=== PATIENT | female | born 1935 | race Caucasian/White ===

== ENCOUNTER 2017-02-23 12:01 | Observation (INO) | payer MEDICARE, OTHER ==
[2017-02-23] MEDS ORDERED: Aspirin 81 MG Tab.EC PO ONE (12:20)
--- NOTE | 2017-02-23 13:36 | EDM.PDOC ---
ED HPI GENERAL MEDICAL PROBLEM - General Chief Complaint: Neuro Symptoms/Deficits Stated Complaint: POSSIBLE STROKE/TIA Time Seen by Provider: 02/23/17 12:05 Source of Information: Reports: Patient History Limitations: Reports: No Limitations - History of Present Illness INITIAL COMMENTS - FREE TEXT/NARRATIVE: Patient is an 81 year old woman who was talking with her daughter on the phone one half hour before coming to the ED and her daughter noticed that she was slurring her speech as she did when she had a TIA many years ago. Her daughter called the ambulance and her brother and when they got to her home they noticed the slurred speech, a left facial and mouth droop and her right arm was weak and hard to raise throughout the whole ROM. She has no pain or other complaints but is here for further evaluation and treatment. Onset: Today Onset Date: 02/23/17 Onset Time: 11:30 Duration: Minutes: (40) Location: Reports: Face (Facial and mouth drooping.), Upper Extremity, Right ( Weakness) Quality: Reports: Other (Weakness and slurred speech like a TIA that she has had before.) Severity: Moderate Improves with: Reports: None Worsens with: Reports: None Context: Reports: Other (History of TIA's.) Associated Symptoms: Reports: No Other Symptoms - Related Data Allergies Allergy/AdvReac Type Severity Reaction Status Date / Time No Known Allergies Allergy Verified 02/23/17 12:30 Home Meds: Home Meds Candesartan [Atacand] 32 mg PO DAILY 02/23/17 [History] Hydrochlorothiazide 25 mg PO DAILY 02/23/17 [History] Metoprolol Succinate [Toprol Xl] 50 mg PO DAILY 02/23/17 [History] atorvaSTATin [Lipitor] 20 mg .ROUTE DAILY 02/23/17 [History] Past Medical History HEENT History: Reports: Cataract, Hard of Hearing Cardiovascular History: Reports: High Cholesterol, Hypertension Respiratory History: Reports: Other (See Below) Other Respiratory History: hx of lung ca, had upper lobe of right lung removed Gastrointestinal History: Reports: Cholelithiasis Musculoskeletal History: Reports: Osteoarthritis Neurological History: Reports: TIA Oncologic (Cancer) History: Reports: Lung - Past Surgical History HEENT Surgical History: Reports: Cataract Surgery Respiratory Surgical History: Reports: Lung Resection Social & Family History - Tobacco Use Smoking Status *Q: Never Smoker Second Hand Smoke Exposure: No - Caffeine Use Caffeine Use: Reports: Coffee - Alcohol Use Days Per Week of Alcohol Use: 2 Number of Drinks Per Day: 1 Total Drinks Per Week: 2 Date of Last Drink: 02/23/17 - Recreational Drug Use Recreational Drug Use: No ED ROS GENERAL - Review of Systems Review Of Systems: See Below Constitutional: Reports: Weakness, Other (Slurred speech.) HEENT: Reports: Other (Right facial and mouth droop and slurred speech.) Respiratory: Reports: No Symptoms Cardiovascular: Reports: No Symptoms Endocrine: Reports: No Symptoms GI/Abdominal: Reports: No Symptoms : Reports: No Symptoms Musculoskeletal: Reports: No Symptoms Skin: Reports: No Symptoms Neurological: Reports: Weakness (Left side of mouth and lower face. Right arm weakness.), Change in Speech, Other (CT head without contrast showed no new infarct per radiology. 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 Cannot go through full right shoulder ROM.) DTR: 2+: Bicep (R), Bicep (L), Tricep (R), Tricep (L), Patella (R), Patella (L) Extremities: Normal Inspection, Non-Tender, No Pedal Edema Psychiatric: Normal Affect, Normal Mood Skin Exam: Warm, Dry, Intact, Normal Color, No Rash Course - Vital Signs Text/Narrative:: Patient was given 162 mg of Aspirin shortly after admission and by the time all the labs and CT results were back in she was back to normal. She will be admitted to observation to watch her closely for any neurological symptoms. She will continue her home meds, HCTZ, Atorvastatin, Candesartan an Metoprolol. Dr. Conway will staff her in the AM. She is a full code. Last Recorded V/S: Last Vital Signs Temp 36.7 C 02/23/17 12:40 Pulse 64 02/23/17 12:40 Resp 16 02/23/17 12:40 BP 141/72 H 02/23/17 12:40 Pulse Ox 97 02/23/17 12:40 - Orders/Labs/Meds Orders: Active Orders 24 hr Category Date Time Status EKG Documentation Completion [RC] ASDIRECTED Care 02/23/17 12:19 Active EKG Documentation Completion [RC] ROUTINE Care 02/23/17 12:18 Active Head wo Cont [CT] Stat Exams 02/23/17 12:18 Taken Labs: Laboratory Tests 02/23/17 02/23/17 Range/Units 12:20 12:20 WBC 9.0 (4.0-11.0) K/uL RBC 3.98 (3.80-5.80) M/uL Hgb 11.7 (11.5-16.5) g/dL Hct 35.5 L (37.0-47.0) % MCV 89 (76-96) fL MCH 29.4 (27.0-32.0) pg MCHC 33.0 (31.0-35.0) g/dL RDW 13.2 (11.0-16.0) % Plt Count 224 (150-500) K/uL MPV 10.4 H (6.0-10.0) fL Neut % (Auto) 65.0 (45.0-70.0) % Lymph % (Auto) 22.3 (20.0-40.0) % Cole % (Auto) 6.4 (3.0-10.0) % Eos % (Auto) 5.7 H (1.0-5.0) % Baso % (Auto) 0.6 H (0.0-0.5) % Neut # (Auto) 5.85 (2.00-7.50) K/uL Lymph # (Auto) 2.01 (1.50-4.00) K/uL Cole # (Auto) 0.58 (0.20-0.80) K/uL Eos # (Auto) 0.51 H (0.04-0.40) K/uL Baso # (Auto) 0.05 (0.02-0.10) K/uL Sodium 137 (136-145) mmol/L Potassium 3.7 (3.5-5.1) mmol/L Chloride 101 (98-107) mmol/L Carbon Dioxide 27.5 (21.0-32.0) mmol/L Anion Gap 12.2 (5.0-15.0) mmol/L BUN 22 (8-26) mg/dL Creatinine 1.05 H (0.55-1.02) mg/dL Est Cr Clr Drug Dosing TNP Estimated GFR (MDRD) 50 L (>60) MLS/MIN BUN/Creatinine Ratio 21.0 (6-25) Glucose 142 H D (74-100) mg/dL Calcium 9.2 (8.5-10.1) mg/dL Total Bilirubin 0.6 (0.0-1.0) mg/dL AST 14 L (15-37) U/L ALT 20 (12-78) U/L Alkaline Phosphatase 108 (46-116) U/L Troponin I < 0.017 (0.000-0.060) ng/mL Total Protein 7.0 (6.4-8.2) g/dL Albumin 3.3 L (3.4-5.0) g/dL Globulin 3.7 (2.2-4.2) g/dL Albumin/Globulin Ratio 0.9 (0.8-2.0) Meds: Medications Discontinued Medications Generic Name Dose Route Start Last Admin Trade Name Freq PRN Reason Stop Dose Admin Aspirin 162 mg 02/23/17 12:20 Halfprin PO 02/23/17 12:21 ONETIME ONE Departure - Departure Time of Disposition: 13:58 Disposition: Refer to Observation Condition: Good Clinical Impression: TIA (transient ischemic attack) - Discharge Information Forms: ED Department Discharge Additional Instructions: Please use this ED note also as the admission H and P to observation admission. - My Orders Last 24 Hours: My Active Orders 02/23/17 12:18 EKG Documentation Completion [RC] ROUTINE Head wo Cont [CT] Stat 02/23/17 12:19 EKG Documentation Completion [RC] ASDIRECTED - Assessment/Plan Last 24 Hours: My Active Orders 02/23/17 12:18 EKG Documentation Completion [RC] ROUTINE Head wo Cont [CT] Stat 02/23/17 12:19 EKG Documentation Completion [RC] ASDIRECTED
--- NOTE | 2017-02-23 18:40 | CT ---
DATE OF SERVICE: 02/23/2017 CLINICAL DATA: Slurred speech, left facial droop and weakness rig. UNENHANCED BRAIN CT Multislice acquisition through the brain without IV contrast was performed. No priors. There is mild diffuse cerebral atrophy. There are periventricular lucencies bilaterally consistent with small vessel ischemic change. There is a small area of encephalomalacia in the right cerebellar hemisphere consistent with a prior infarct. No masses or mass effect. No intracranial hemorrhage. No evidence of acute or subacute infarct. There is minimal mucosal thickening in the ethmoid sinuses consistent with chronic sinusitis. IMPRESSION: No acute intracranial abnormalities. [id number] [facility]
[2017-02-23] MEDS ORDERED: Aspirin 81 MG Tab.EC ONE (19:27)
[2017-02-23] MEDS ORDERED: atorvaSTATin 20 MG Tab PO SCH (20:00)
[2017-02-24] MEDS ORDERED: Hydrochlorothiazide 25 MG Tab PO SCH ×2 (08:00→20:00)
[2017-02-24] MEDS ORDERED: Metoprolol Succinate 50 MG Tab.ER PO SCH ×2 (08:00→20:00)
--- NOTE | 2017-02-24 10:00 | PCM.DCSUM1 ---
Discharge Summary - Discharge Data Discharge Date: 02/24/17 Discharge Disposition: Home, Self-Care 01 Condition: Good - Patient Instructions Diet: Heart Healthy Diet Activity: As Tolerated Driving: Do Not Drive - Discharge Plan Home Medications: Home Meds Candesartan [Atacand] 32 mg PO DAILY 02/23/17 [History] Hydrochlorothiazide 25 mg PO DAILY 02/23/17 [History] Metoprolol Succinate [Toprol Xl] 50 mg PO DAILY 02/23/17 [History] atorvaSTATin [Lipitor] 20 mg .ROUTE DAILY 02/23/17 [History] Patient Handouts: Transient Ischemic Attack, [id number] Forms: ED Department Discharge Referrals: PCP,None [Primary Care Provider] - - Discharge Summary/Plan Comment DC Time >30 min.: Yes Discharge Summary/Plan Comment: Patient counseled on close monitoring and f/u in clinic as routine after discharge. Discussed need for further imaging eg MRA due to prior history 15 years ago of a similar TIA apparently in the same region of the brain. Patient to f/u in clinic and for MRA in AM. Patient currently asymptomatic and fully recovered. - Patient Data Vitals - Most Recent: Last Vital Signs Temp 36.8 C 02/23/17 20:00 Pulse 72 02/23/17 21:00 Resp 18 02/24/17 04:00 BP 146/78 H 02/23/17 21:00 Pulse Ox 95 02/23/17 20:00 Weight - Most Recent: 90.718 kg Med Orders - Current: Current Medications Discontinued Medications Aspirin (Halfprin) 162 mg PO ONETIME ONE Stop: 02/23/17 12:21 Last Admin: 02/23/17 19:34 Dose: Not Given Aspirin (Halfprin) Confirm Administered Dose 162 mg .ROUTE .STK-MED ONE Stop: 02/23/17 19:28 Last Admin: 02/23/17 19:32 Dose: 162 mg Atorvastatin Calcium (Lipitor) 20 mg PO BEDTIME [facility] Last Admin: 02/23/17 20:58 Dose: 20 mg Hydrochlorothiazide (Hydrochlorothiazide) 25 mg PO DAILY [facility] Last Admin: 02/23/17 20:58 Dose: 25 mg Hydrochlorothiazide (Hydrochlorothiazide) 25 mg PO BEDTIME [facility] Metoprolol Succinate (Toprol Xl) 50 mg PO DAILY [facility] Last Admin: 02/23/17 21:00 Dose: 50 mg Metoprolol Succinate (Toprol Xl) 50 mg PO BEDTIME SHARONDA *Q Meaningful Use (DIS) - VTE *Q VTE Criteria *Q: - Stroke *Q Stroke Criteria *Q: - AMI *Q AMI Criteria *Q:
[2017-02-24 10:01] VITALS: BP 155/64
== END 2017-02-24 09:53 | disposition home or self-care (01) ==
LOC: LB.ED 12:01 → LB.MS 13:00 → UNDOADMOB 13:00 → LB.MS 13:45 → LB.ED 14:46
PROVIDERS: ADMIT Family Medicine; ATTEND Family Medicine
DX: G45.9 Transient cerebral ischemic attack, unspecified (principal); I10 Essential (primary) hypertension; E78.00 Pure hypercholesterolemia, unspecified; Z79.899 Other long term (current) drug therapy; Z98.890 Other specified postprocedural states
CPT/HCPCS: 36415; 70450; 80053; 84484; 85025; 93005; 99285; A0425; A0429; G0378; 99217; 99220; A9270-GY

== ENCOUNTER 2021-05-12 07:34 | Emergency (ER) | payer MEDICARE, OTHER ==
[2021-05-12] MEDS ORDERED: Sodium Chloride 0.9% 10 ML Syringe FLUSH PRN (08:11)
--- NOTE | 2021-05-12 08:52 | EDM.PDOC ---
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 Left Lower Abdomen Pain Score (Numeric/FACES): 8 - Related Data Allergies Allergy/AdvReac Type Severity Reaction Status Date / Time No Known Allergies Allergy Verified 05/12/21 08:07 Home Meds: Home Meds Candesartan [Atacand] 32 mg PO DAILY 02/23/17 [History] Metoprolol Succinate [Toprol Xl] 50 mg PO QPM 02/23/17 [History] atorvaSTATin [Lipitor] 20 mg PO QPM 02/23/17 [History] Aspirin 81 mg PO QPM 05/12/21 [History] Levothyroxine Sodium [Synthroid] 1 tab PO QAM 05/12/21 [History] Past Medical History HEENT History: Reports: Cataract, Hard of Hearing Cardiovascular History: Reports: High Cholesterol, Hypertension Respiratory History: Reports: Other (See Below) Other Respiratory History: hx of lung ca, had upper lobe of right lung removed Gastrointestinal History: Reports: Cholelithiasis [employer]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: Musculoskeletal History: Reports: Osteoarthritis Neurological History: Reports: TIA Endocrine/Metabolic History: Reports: Hypothyroidism Oncologic (Cancer) History: Reports: Lung - Infectious Disease History Infectious Disease History: Reports: Chicken Pox, Measles, Mumps - Past Surgical History HEENT Surgical History: Reports: Cataract Surgery Respiratory Surgical History: Reports: Lung Resection Oncologic Surgical History: Reports: Lobectomy Other Oncologic Surgeries/Procedures: right upper lobe Social & Family History - Family History Family Medical History: No Pertinent Family History Neurological: Reports: CVA - Tobacco Use Tobacco Use Status *Q: Never Tobacco User - Caffeine Use Caffeine Use: Reports: None - Recreational Drug Use Recreational Drug Use: No ED ROS GENERAL - Review of Systems Review Of Systems: See Below Constitutional: Reports: Decreased Appetite. Denies: Fever HEENT: Reports: No Symptoms Respiratory: Denies: Shortness of Breath, Cough Cardiovascular: Denies: Chest Pain GI/Abdominal: Reports: Abdominal Pain, Constipation, Decreased Appetite. Denies: Diarrhea, Nausea, Vomiting Musculoskeletal: Reports: Back Pain Skin: Reports: No Symptoms Neurological: Reports: No Symptoms ED EXAM, GI/ABD - Physical Exam Exam: See Below Exam Limited By: No Limitations General Appearance: Alert, No Apparent Distress Eyes: Bilateral: Normal Appearance Ears: Normal External Exam, Hearing Grossly Normal Nose: Normal Inspection Throat/Mouth: Normal Inspection Head: Atraumatic, Normocephalic Neck: Normal Inspection, Full Range of Motion Respiratory/Chest: No Respiratory Distress, Lungs Clear, Normal Breath Sounds, No Accessory Muscle Use, Chest Non-Tender Cardiovascular: Regular Rate, Rhythm GI/Abdominal Exam: Normal Bowel Sounds, Soft, Tender Back Exam: Normal Inspection, Other (Back pain at T12-L1 and 2, paraspinal extending around to abdomen) Extremities: Normal Inspection Neurological: Alert, Oriented Psychiatric: Normal Affect Skin Exam: Warm, Dry, Intact, Normal Color, No Rash Course - Vital Signs Last Recorded V/S: Last Vital Signs Temp 36.2 C 05/12/21 08:00 Pulse 58 L 05/12/21 09:30 Resp 18 05/12/21 09:30 BP 158/66 H 05/12/21 09:30 Pulse Ox 97 05/12/21 09:30 - Orders/Labs/Meds Orders: Active Orders 24 hr Category Date Time Status Abdomen Pelvis wo Cont [CT] Stat Exams 05/12/21 08:11 Taken CULTURE URINE [RM] Stat Lab 05/12/21 09:45 Received Sodium Chloride 0.9% [Normal Saline] 1,000 ml Med 05/12/21 09:00 Active IV ASDIRECTED Sodium Chloride 0.9% [Saline Flush] Med 05/12/21 08:11 Active 10 ml FLUSH ASDIRECTED PRN Saline Lock Insert [OM.PC] Routine Oth 05/12/21 08:11 Ordered Medication Orders Sodium Chloride (Normal Saline) 1,000 mls @ 1,000 mls/hr IV ASDIRECTED [facility] Last Admin: 05/12/21 08:53 Dose: 1,000 mls/hr Documented by: WEEMAMY Sodium Chloride (Sodium Chloride 0.9% 10 Ml Syringe) 10 ml FLUSH ASDIRECTED PRN PRN Reason: Keep Vein Open Labs: Laboratory Tests 05/12/21 05/12/21 05/12/21 Range/Units 08:10 08:10 09:45 WBC 8.2 (4.0-11.0) K/uL RBC 4.20 (3.80-5.80) M/uL Hgb 12.5 (11.5-16.5) g/dL Hct 36.4 L (37.0-47.0) % MCV 87 (76-96) fL MCH 29.8 (27.0-32.0) pg MCHC 34.3 (31.0-35.0) g/dL RDW 13.3 (11.0-16.0) % Plt Count 221 (150-500) K/uL MPV 10.3 H (6.0-10.0) fL Neut % (Auto) 71.7 H (45.0-70.0) % Lymph % (Auto) 18.4 L (20.0-40.0) % [place] % (Auto) 5.3 (3.0-10.0) % Eos % (Auto) 4.4 (1.0-5.0) % Baso % (Auto) 0.2 (0.0-0.5) % Neut # (Auto) 5.84 (2.00-7.50) K/uL Lymph # (Auto) 1.50 (1.50-4.00) K/uL [place] # (Auto) 0.43 (0.20-0.80) K/uL Eos # (Auto) 0.36 (0.04-0.40) K/uL Baso # (Auto) 0.02 (0.02-0.10) K/uL Sodium 132 L (136-145) mmol/L Potassium 3.9 (3.5-5.1) mmol/L Chloride 100 (98-107) mmol/L Carbon Dioxide 24.1 (21.0-32.0) mmol/L Anion Gap 11.8 (5.0-15.0) mmol/L BUN 14 D (8-26) mg/dL Creatinine 0.81 (0.55-1.02) mg/dL Est Cr Clr Drug Dosing 39.71 mL/min Estimated GFR (MDRD) > 60 (>60) MLS/MIN BUN/Creatinine Ratio 17.3 (6-25) Glucose 106 H (74-100) mg/dL Calcium 9.6 (8.5-10.1) mg/dL Urine Color Yellow Urine Appearance Clear (CLEAR) Urine pH 7.5 (5.0-8.0) Ur Specific [place] 1.020 (1.003-1.030) Urine Protein Negative (NEGATIVE) mg/dL Urine Glucose (UA) Negative (NEGATIVE) mg/dL Urine Ketones Negative (NEGATIVE) mg/dL Urine Occult Blood Trace-intact H (NEGATIVE) Urine Nitrite Negative (NEGATIVE) Urine Bilirubin Negative (NEGATIVE) Urine Urobilinogen 0.2 (0.2-1.0) E.U./dL Ur Leukocyte Esterase Trace H (NEGATIVE) Urine RBC 0-5 H /HPF Urine WBC 0-5 H /HPF Ur Squamous Epith Cells Few /HPF Amorphous Sediment Few /HPF Urine Bacteria Few /HPF Meds: Medications Generic Name Dose Route Start Last Admin Trade Name Freq PRN Reason Stop Dose Admin Sodium Chloride 1,000 mls @ 1,000 mls/hr 05/12/21 09:00 05/12/21 08:53 Normal Saline IV 1,000 mls/hr ASDIRECTED SHARONDA Administration Sodium Chloride 10 ml 05/12/21 08:11 Sodium Chloride 0.9% 10 Ml Syringe FLUSH ASDIRECTED PRN Keep Vein Open - Re-Assessments/Exams Free Text/Narrative Re-Assessment/Exam: 05/12/21 11:15 This patient presents to the emergency department for evaluation of abdominal pain. A broad differential diagnosis was considered including appendicitis, gallbladder disease, pancreatitis, diverticular disease, bowel obstruction, volvulus, intussusception, gastritis, and peptic ulcer disease. I also considered gastrointestinal infection, inflammatory bowel disease, peritonitis, pyelonephritis, urinary tract infection, kidney stones. CT evaluation of abdomen and pelvis does identify several concerning findings; however, these are findings that will require further evaluation. These include lung nodules, liver lesions, spinal lesions, and gallstones. Certainly these findings could contribute to her pain overall but I do not believe that it is causing her acute pain today. She did have evidence of a urinary tract infection on urinalysis and I will treat her for that with Bactrim DS. She was also given a limited amount of tramadol for pain as she states that Tylenol is not helping her any longer. I instructed her to follow-up with Dr. Conway this week to develop a plan for obtaining sufficient information about her CT findings and then developing a plan for management. I had an extensive conversation with her daughter Terra and the patient about these findings and what they could potentially mean. Ultimately, the patient will need to determine what she wants to do in terms of care for these other issues. The patient was stable at the time of discharge. Departure - Departure Time of Disposition: 10:55 Disposition: Home, Self-Care 01 Condition: Fair Clinical Impression: Urinary tract infection - Discharge Information Instructions: Tramadol tablets, Urinary Tract Infection, Adult, Sulfamethoxazole; Trimethoprim, SMX-TMP tablets Referrals: PCP,None [Primary Care Provider] - Forms: ED Department Discharge Additional Instructions: Take Bactrim as ordered. Follow up with Dr. Conway Sepsis Event Note (ED) - Evaluation Sepsis Screening Result: No Definite Risk - Focused Exam Vital Signs: Vital Signs Temp Pulse Resp BP Pulse Ox 05/12/21 09:30 58 L 18 158/66 H 97 05/12/21 09:15 59 L 18 149/70 H 97 05/12/21 09:00 61 18 157/82 H 97 05/12/21 08:30 71 18 157/83 H 97 05/12/21 08:15 71 18 157/83 H 97 05/12/21 08:00 36.2 C 77 18 169/87 H 97 - My Orders Last 24 Hours: My Active Orders 05/12/21 08:11 Abdomen Pelvis wo Cont [CT] Stat Sodium Chloride 0.9% [Saline Flush] 10 ml FLUSH ASDIRECTED PRN Saline Lock Insert [OM.PC] Routine 05/12/21 09:00 Sodium Chloride 0.9% [Normal Saline] 1,000 ml IV ASDIRECTED 05/12/21 09:45 CULTURE URINE [RM] Stat - Assessment/Plan Last 24 Hours: My Active Orders 05/12/21 08:11 Abdomen Pelvis wo Cont [CT] Stat Sodium Chloride 0.9% [Saline Flush] 10 ml FLUSH ASDIRECTED PRN Saline Lock Insert [OM.PC] Routine 05/12/21 09:00 Sodium Chloride 0.9% [Normal Saline] 1,000 ml IV ASDIRECTED 05/12/21 09:45 CULTURE URINE [RM] Stat
[2021-05-12] MEDS ORDERED: Sodium Chloride 0.9% 1,000 ML IV SCH (09:00)
[2021-05-12] MEDS ORDERED: traMADol 50 MG Tab ONE (11:00)
[2021-05-12] MEDS ORDERED: Sulfamethoxazole/Trimethoprim 800-160 MG Tab ONE (11:00)
[2021-05-12 11:22] VITALS: BP 166/83; PULSE 71
--- NOTE | 2021-05-13 13:03 | CT ---
Date of Service: 05/12/21 Clinical Data: abdominal pain UNENHANCED ABDOMEN AND PELVIC CT: Multislice acquisition through the abdomen and pelvis without IV or oral contrast was performed. Comparison was made to a prior exam dated 03/07/21. There are emphysematous changes in both lower lungs. There are multiple nodules noted in both lower lungs. These are unchanged in size, number, and appearance from the prior exam. No pleural effusion. The heart size is normal. Minimal pericardial effusion. The liver is normal size. There is a 9 mm low-density lesion in the right lobe of the liver inferiorly. It is unchanged from the prior study. There is another subcentimeter low-density lesion in the liver. It is unchanged. No new hepatic lesions. There are multiple calcified gallstones within the gallbladder. No pericholecystic fluid. The spleen appears normal. The pancreas is atrophic,otherwise unremarkable. The right and left adrenals appear normal. There are two subcentimeter hyperdense cysts in the upper pole of the left kidney. There is a 9.5 cm simple appearing cyst in the lower pole of the left kidney. There are two small cysts projecting from the right renal cortex. No nephrocalcinosis or nephrolithiasis. No hydronephrosis or hydroureter. The bladder is fluid filled. It appears normal. The patient is status post hysterectomy. There is diverticulosis of the colon. No evidence of diverticulitis. There is diffuse gastric wall thickening. This is probably related to nondistention. Gastritis or an infiltrating process should be considered. There is a small hiatal hernia. There is also mural thickening of the distal esophagus and esophagitis should be considered. There is degenerative disk disease throughout the lower thoracic and lumbar spine. There are lytic lesions noted within the T9, T10, and T11 vertebrae. Metastatic disease is suspected. There is also soft tissue fullness adjacent to the T10 vertebra consistent with metastatic disease. No other significant findings or significant changes from the prior study. [id number] [facility]
== END 2021-05-12 11:10 | disposition home or self-care (01) ==
LOC: LB.ED 07:34
DX: N39.0 Urinary tract infection, site not specified (principal); I10 Essential (primary) hypertension; E78.00 Pure hypercholesterolemia, unspecified; E03.9 Hypothyroidism, unspecified; Z79.899 Other long term (current) drug therapy
CPT/HCPCS: 36415; 74176; 80048; 81001; 85025; 87086; 99284; A9270; J7030

== ENCOUNTER 2021-05-14 10:44 | Emergency (ER) | payer MEDICARE, OTHER ==
[2021-05-14 11:46] VITALS: BP 154/68; PULSE 61
[2021-05-14] MEDS: Sodium Chloride 0.9% 1,000 ML IV ONE (12:44)
--- NOTE | 2021-05-14 14:31 | EDM.PDOC ---
ED HPI GENERAL MEDICAL PROBLEM - General Chief Complaint: Back Pain or Injury Stated Complaint: PAIN Time Seen by Provider: 05/14/21 10:50 - History of Present Illness INITIAL COMMENTS - FREE TEXT/NARRATIVE: Pt comes in with her daughter with C/O not feeling well. She was seen 2 days ago in the ER for Abd pain. She was treated for a UTI, and given Tramadol for pain. A CT Abd was done, with multiple abnormal findings, but nothing acute. She was told to follow up with her PCP in the clinic for further evaluation. She tried to get in today, and was told to come chin to the ER. She tells me about chronic back pain, Hx of Diverticulitis last summer, and just not feeling well lately. She has not had any recent falls or injuries. She recently moved to an Apartment and she is not liking that very well, telling me she usually just sits in a chair. She is not having any pain at this time. 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 Medication(s) Other Treatments RETAIL WAREHOUSE SUPERVISOR: Tramadol Bilateral Middle Back Pain Score (Numeric/FACES): 5 - Related Data Allergies Allergy/AdvReac Type Severity Reaction Status Date / Time No Known Allergies Allergy Verified 05/14/21 11:53 Home Meds: Home Meds Candesartan [Atacand] 32 mg PO DAILY 02/23/17 [History] Metoprolol Succinate [Toprol Xl] 50 mg PO QPM 02/23/17 [History] atorvaSTATin [Lipitor] 20 mg PO QPM 02/23/17 [History] Aspirin 81 mg PO QPM 05/12/21 [History] Levothyroxine Sodium [Synthroid] 1 tab PO QAM 05/12/21 [History] Sulfamethoxazole/Trimethoprim [Bactrim Ds Tablet] 1 each PO BID 05/14/21 [History] traMADol [Ultram] 50 mg PO Q8H 05/14/21 [History] Past Medical History HEENT History: Reports: Cataract, Hard of Hearing Cardiovascular History: Reports: High Cholesterol, Hypertension Respiratory History: Reports: Other (See Below) Other Respiratory History: hx of lung ca, had upper lobe of right lung removed Gastrointestinal History: Reports: Cholelithiasis CCTV 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: Musculoskeletal History: Reports: Osteoarthritis Neurological History: Reports: TIA Endocrine/Metabolic History: Reports: Hypothyroidism Oncologic (Cancer) History: Reports: Lung - Infectious Disease History Infectious Disease History: Reports: Chicken Pox, Measles, Mumps - Past Surgical History HEENT Surgical History: Reports: Cataract Surgery Respiratory Surgical History: Reports: Lung Resection Oncologic Surgical History: Reports: Lobectomy Other Oncologic Surgeries/Procedures: right upper lobe Social & Family History - Family History Family Medical History: No Pertinent Family History Neurological: Reports: CVA - Tobacco Use Tobacco Use Status *Q: Never Tobacco User Second Hand Smoke Exposure: No - Caffeine Use Caffeine Use: Reports: Coffee - Recreational Drug Use Recreational Drug Use: No ED ROS GENERAL - Review of Systems Review Of Systems: Comprehensive ROS is negative, except as noted in HPI. Constitutional: Reports: Weakness (at times lately.) Psychiatric: Reports: Other (Feeling stressed for awhile, worse after getting the CT results 2 days ago.) ED EXAM, GENERAL - Physical Exam Exam: See Below Eye Exam: Bilateral Eye: EOMI Throat/Mouth: Other (Tongue and mucous membranes are slightly dry.) Course - Vital Signs Last Recorded V/S: Last Vital Signs Temp 97.4 F 05/14/21 11:25 Pulse 61 05/14/21 11:25 Resp 18 05/14/21 11:25 BP 154/68 H 05/14/21 11:25 Pulse Ox 97 05/14/21 11:25 - Orders/Labs/Meds Labs: Laboratory Tests 05/14/21 05/14/21 05/14/21 Range/Units 12:00 12:00 12:05 WBC 7.9 (4.0-11.0) K/uL RBC 4.30 (3.80-5.80) M/uL Hgb 12.7 (11.5-16.5) g/dL Hct 36.9 L (37.0-47.0) % MCV 86 (76-96) fL MCH 29.5 (27.0-32.0) pg MCHC 34.4 (31.0-35.0) g/dL RDW 13.6 (11.0-16.0) % Plt Count 211 (150-500) K/uL MPV 9.8 (6.0-10.0) fL Neut % (Auto) 76.0 H (45.0-70.0) % Lymph % (Auto) 15.3 L (20.0-40.0) % [place] % (Auto) 5.3 (3.0-10.0) % Eos % (Auto) 3.1 (1.0-5.0) % Baso % (Auto) 0.3 (0.0-0.5) % Neut # (Auto) 5.98 (2.00-7.50) K/uL Lymph # (Auto) 1.20 L (1.50-4.00) K/uL [place] # (Auto) 0.42 (0.20-0.80) K/uL Eos # (Auto) 0.24 (0.04-0.40) K/uL Baso # (Auto) 0.02 (0.02-0.10) K/uL Sodium 131 L (136-145) mmol/L Potassium 4.1 (3.5-5.1) mmol/L Chloride 95 L (98-107) mmol/L Carbon Dioxide 26.4 (21.0-32.0) mmol/L Anion Gap 13.7 (5.0-15.0) mmol/L BUN 13 (8-26) mg/dL Creatinine 0.92 (0.55-1.02) mg/dL Est Cr Clr Drug Dosing 34.96 mL/min Estimated GFR (MDRD) 58 L (>60) MLS/MIN BUN/Creatinine Ratio 14.1 (6-25) Glucose 111 H (74-100) mg/dL Calcium 9.8 (8.5-10.1) mg/dL Urine Color Yellow Urine Appearance Slightly cloudy (CLEAR) Urine pH 7.0 (5.0-8.0) Ur Specific [place] 1.020 (1.003-1.030) Urine Protein Negative (NEGATIVE) mg/dL Urine Glucose (UA) Negative (NEGATIVE) mg/dL Urine Ketones Negative (NEGATIVE) mg/dL Urine Occult Blood Trace-lysed H (NEGATIVE) Urine Nitrite Negative (NEGATIVE) Urine Bilirubin Negative (NEGATIVE) Urine Urobilinogen 0.2 (0.2-1.0) E.U./dL Ur Leukocyte Esterase Moderate H (NEGATIVE) Urine RBC 0-5 H /HPF Urine WBC 20-30 H /HPF Urine WBC Clumps Few /HPF Ur Squamous Epith Cells Many /HPF Urine Bacteria Few /HPF Meds: Medications Discontinued Medications Generic Name Dose Route Start Last Admin Trade Name Freq PRN Reason Stop Dose Admin Sodium Chloride 1,000 mls @ 500 mls/hr 05/14/21 11:52 05/14/21 12:44 Normal Saline IV 05/14/21 13:51 500 mls/hr .BOLUS ONE Administration - Re-Assessments/Exams Free Text/Narrative Re-Assessment/Exam: 05/14/21 14:34 Labs are ok. She was given 1 liter of N.S. She was able to get up to the bathroom twice and has a normal smooth gait when observed. I did discuss her case with her son Thom, who agree's she has been stressed alot lately. Labs today are ok, her Na is 131, was 132 2 days ago. She will be discharged home. Her son will call management services technician will be contacted for a home evaluation. I want her to stop taking Lipitor for 1 week. And she needs to follow up with her PCP this week in the clinic. Departure - Departure Time of Disposition: 14:05 Disposition: Home, Self-Care 01 Condition: Good Clinical Impression: Stress and adjustment reaction - Discharge Information *PRESCRIPTION DRUG MONITORING PROGRAM REVIEWED*: Yes *COPY OF PRESCRIPTION DRUG MONITORING REPORT IN PATIENT ALEXA: Yes Referrals: PCP,None [Primary Care Provider] - Forms: ED Department Discharge Additional Instructions: F/U in the clinic in 1 week If symptoms return or persist return to the ER or clinic Stop taking Lipitor for 1 week Call administrator social welfare to f/u with home health If you have any questions or concerns please call us at [phone] Sepsis Event Note (ED) - Evaluation Sepsis Screening Result: No Definite Risk - Focused Exam Vital Signs: Vital Signs Temp Pulse Resp BP Pulse Ox 05/14/21 11:25 97.4 F 61 18 154/68 H 97
== END 2021-05-14 14:10 | disposition home or self-care (01) ==
LOC: LB.ED 10:44
DX: F43.20 Adjustment disorder, unspecified (principal); E78.00 Pure hypercholesterolemia, unspecified; I10 Essential (primary) hypertension; E03.9 Hypothyroidism, unspecified; Z79.82 Long term (current) use of aspirin; Z79.899 Other long term (current) drug therapy; Z86.73 Personal history of transient ischemic attack (TIA), and cerebral infarction without residual deficits
CPT/HCPCS: 36415; 80048; 81001; 85025; 99284; J7030

== ENCOUNTER 2021-05-25 07:13 | Inpatient (IN) | payer MEDICARE, OTHER ==
[2021-05-25] MEDS ORDERED: Sodium Chloride 0.9% 10 ML Syringe FLUSH PRN (08:09)
[2021-05-25] MEDS ORDERED: Sodium Chloride 0.9% 1,000 ML IV SCH (08:15)
--- NOTE | 2021-05-25 08:15 | EDM.PDOC ---
ED HPI GENERAL MEDICAL PROBLEM - General Chief Complaint: Abdominal Pain Stated Complaint: WEAKNESS Time Seen by Provider: 05/25/21 07:30 Source of Information: Reports: EMS History Limitations: Reports: No Limitations - History of Present Illness INITIAL COMMENTS - FREE TEXT/NARRATIVE: 86-year-old female presents to the ED via ambulance. Complaining of not feeling well associated with weakness. Patient is having difficulty trying to explain why she ended up in the ED. Patient brought up multiple issues that were discussed at her last two ED visits including diverticulosis, lung nodule, and lesions to her spine and liver. Patient positive for: Recent move, lack of social involvement, decreased oral intake. Patient denies: Chest pain, shortness of breath, cough, trauma, headache, nausea vomiting, blood in her stool, diarrhea. Patient unable to articulate how long this is been going on, if this is a new acute issue today, how severe her weakness is. Duration: Day(s): Abdominal Pain Score (Numeric/FACES): 6 - Related Data Allergies Allergy/AdvReac Type Severity Reaction Status Date / Time No Known Allergies Allergy Verified 05/25/21 07:38 Home Meds: Home Meds Candesartan [Atacand] 32 mg PO DAILY 02/23/17 [History] Metoprolol Succinate [Toprol Xl] 50 mg PO QPM 02/23/17 [History] atorvaSTATin [Lipitor] 20 mg PO QPM 02/23/17 [History] Aspirin 81 mg PO QPM 05/12/21 [History] Levothyroxine Sodium [Synthroid] 1 tab PO QAM 05/12/21 [History] traMADol [Ultram] 50 mg PO Q8H 05/14/21 [History] Past Medical History HEENT History: Reports: Cataract, Hard of Hearing Cardiovascular History: Reports: High Cholesterol, Hypertension Respiratory History: Reports: Other (See Below) Other Respiratory History: hx of lung ca, had upper lobe of right lung removed Gastrointestinal History: Reports: Cholelithiasis, Diverticulosis 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: Musculoskeletal History: Reports: Osteoarthritis Neurological History: Reports: TIA Endocrine/Metabolic History: Reports: Hypothyroidism Oncologic (Cancer) History: Reports: Lung - Infectious Disease History Infectious Disease History: Reports: Chicken Pox, Measles, Mumps - Past Surgical History HEENT Surgical History: Reports: Cataract Surgery Respiratory Surgical History: Reports: Lung Resection Oncologic Surgical History: Reports: Lobectomy Other Oncologic Surgeries/Procedures: right upper lobe Social & Family History - Family History Family Medical History: No Pertinent Family History Neurological: Reports: CVA - Tobacco Use Tobacco Use Status *Q: Former Tobacco User Used Tobacco, but Quit: Yes Month/Year Tobacco Last Used: 1979 Second Hand Smoke Exposure: No - Caffeine Use Caffeine Use: Reports: Tea - Recreational Drug Use Recreational Drug Use: No ED ROS GENERAL - Review of Systems Review Of Systems: See Below (Patient is a poor historian, patient having difficulty articulating her condition.) Constitutional: Reports: Weakness, Fatigue, Decreased Appetite. Denies: Diaphoresis HEENT: Reports: Other (Yellow thick mucus at times which patient is able to cough up) Respiratory: Reports: No Symptoms Cardiovascular: Reports: Lightheadedness (Possible) Endocrine: Reports: Fatigue GI/Abdominal: Reports: Constipation, Decreased Appetite. Denies: Black Stool, Bloody Stool : Reports: No Symptoms Musculoskeletal: Reports: Back Pain Skin: Reports: Dryness. Denies: Rash Neurological: Reports: Dizziness (Possible), Trouble Speaking (Difficulty articulating her condition) Psychiatric: Reports: Other (Downcast, no eye contact, slow to respond) Hematologic/Lymphatic: Reports: No Symptoms Immunologic: Reports: No Symptoms ED EXAM, GI/ABD - Physical Exam Exam: See Below Text/Narrative:: 86-year-old female found semifowler position [place] 3 ED. Patient is alert and oriented x3, GCS 456. Patient appears tired, no apparent distress. Speaking in full sentences Exam Limited By: Other (Inability to communicate/articulate what going on) General Appearance: Alert, WD/WN, No Apparent Distress Eyes: Bilateral: Normal Appearance (Right eyelid lower than the left), EOMI Ears: Normal External Exam, Hearing Grossly Normal Nose: Normal Inspection, No Blood. No: Nasal Tenderness, Nasal Flaring Throat/Mouth: Normal Lips, Normal Voice, No Airway Compromise Neck: Normal Inspection, Non-Tender Respiratory/Chest: No Respiratory Distress, Lungs Clear, Normal Breath Sounds, No Accessory Muscle Use, Chest Non-Tender Cardiovascular: Normal Peripheral Pulses, Regular Rate, Rhythm, No Edema, No Gallop, No JVD, No Murmur, No Rub GI/Abdominal Exam: Soft, No Distention, No Mass, Tender ((Mild) right lower quadrant left lower quadrant) Back Exam: Paraspinal Tenderness (Mid back to lower lumbar). No: CVA Tenderness (R), CVA Tenderness (L), Vertebral Tenderness Extremities: Normal Inspection, Normal Range of Motion, Non-Tender, Normal Capillary Refill, No Pedal Edema Neurological: Alert, Oriented, CN II-XII Intact, Normal Gait. No: Normal Cogni tion (Difficulty articulating her condition) Psychiatric: Depressed Mood, Flat Affect Skin Exam: Warm, Dry, Intact, Normal Color, No Rash #1 Interpretation EKG Date: 05/25/21 (Normal sinus rhythm with occasional PAC, no ST elevation or depression this is not a STEMI) Course - Vital Signs Last Recorded V/S: Last Vital Signs Temp 97.0 F 05/25/21 07:18 Pulse 81 05/25/21 07:18 Resp 16 05/25/21 07:18 BP 189/101 H 05/25/21 07:18 Pulse Ox 95 05/25/21 07:18 - Orders/Labs/Meds Orders: Active Orders 24 hr Category Date Time Status CULTURE URINE [RM] Stat Lab 05/25/21 07:43 Received Sodium Chloride 0.9% [Normal Saline] 1,000 ml Med 05/25/21 08:15 Active IV ASDIRECTED Sodium Chloride 0.9% [Saline Flush] Med 05/25/21 08:09 Active 10 ml FLUSH ASDIRECTED PRN Peripheral IV Insertion Adult [OM.PC] Urgent Oth 05/25/21 08:09 Ordered Medication Orders Sodium Chloride (Normal Saline) 1,000 mls @ 250 mls/hr IV ASDIRECTED SHARONDA Last Admin: 05/25/21 08:21 Dose: 250 mls/hr Documented by: HUE Polyethylene Glycol (Polyethylene Glycol 3350 Powder 17 Gm Packet) 17 gm PO DAILY PRN PRN Reason: Constipation Sodium Chloride (Sodium Chloride 0.9% 10 Ml Syringe) 10 ml FLUSH ASDIRECTED PRN PRN Reason: Keep Vein Open Last Admin: 05/25/21 08:20 Dose: 10 ml Documented by: HUE Labs: Laboratory Tests 05/25/21 05/25/21 05/25/21 Range/Units 07:36 07:36 07:37 WBC 6.4 (4.0-11.0) K/uL RBC 4.26 (3.80-5.80) M/uL Hgb 12.7 (11.5-16.5) g/dL Hct 37.1 (37.0-47.0) % MCV 87 (76-96) fL MCH 29.8 (27.0-32.0) pg MCHC 34.2 (31.0-35.0) g/dL RDW 13.9 (11.0-16.0) % Plt Count 210 (150-500) K/uL MPV 10.0 (6.0-10.0) fL Neut % (Auto) 75.2 H (45.0-70.0) % Lymph % (Auto) 17.6 L (20.0-40.0) % [place] % (Auto) 5.5 (3.0-10.0) % Eos % (Auto) 1.4 (1.0-5.0) % Baso % (Auto) 0.3 (0.0-0.5) % Neut # (Auto) 4.80 (2.00-7.50) K/uL Lymph # (Auto) 1.12 L (1.50-4.00) K/uL [place] # (Auto) 0.35 (0.20-0.80) K/uL Eos # (Auto) 0.09 (0.04-0.40) K/uL Baso # (Auto) 0.02 (0.02-0.10) K/uL Sodium (136-145) mmol/L Potassium (3.5-5.1) mmol/L Chloride (98-107) mmol/L Carbon Dioxide (21.0-32.0) mmol/L Anion Gap (5.0-15.0) mmol/L BUN (8-26) mg/dL Creatinine (0.55-1.02) mg/dL Est Cr Clr Drug Dosing mL/min Estimated GFR (MDRD) (>60) MLS/MIN BUN/Creatinine Ratio (6-25) Glucose (74-100) mg/dL Calcium (8.5-10.1) mg/dL Troponin I < 0.017 (0.000-0.060) ng/mL Lipase 117 D (73-393) U/L Urine Color Urine Appearance (CLEAR) Urine pH (5.0-8.0) Ur Specific [place] (1.003-1.030) Urine Protein (NEGATIVE) mg/dL Urine Glucose (UA) (NEGATIVE) mg/dL Urine Ketones (NEGATIVE) mg/dL Urine Occult Blood (NEGATIVE) Urine Nitrite (NEGATIVE) Urine Bilirubin (NEGATIVE) Urine Urobilinogen (0.2-1.0) E.U./dL Ur Leukocyte Esterase (NEGATIVE) Urine RBC /HPF Urine WBC /HPF Ur Squamous Epith Cells /HPF Amorphous Sediment /HPF Urine Bacteria /HPF Ketones Small (NEGATIVE) SARS-CoV-2 RNA (PERRY) (NEGATIVE) 05/25/21 05/25/21 05/25/21 Range/Units 07:37 07:43 08:51 WBC (4.0-11.0) K/uL RBC (3.80-5.80) M/uL Hgb (11.5-16.5) g/dL Hct (37.0-47.0) % MCV (76-96) fL MCH (27.0-32.0) pg MCHC (31.0-35.0) g/dL RDW (11.0-16.0) % Plt Count (150-500) K/uL MPV (6.0-10.0) fL Neut % (Auto) (45.0-70.0) % Lymph % (Auto) (20.0-40.0) % [place] % (Auto) (3.0-10.0) % Eos % (Auto) (1.0-5.0) % Baso % (Auto) (0.0-0.5) % Neut # (Auto) (2.00-7.50) K/uL Lymph # (Auto) (1.50-4.00) K/uL [place] # (Auto) (0.20-0.80) K/uL Eos # (Auto) (0.04-0.40) K/uL Baso # (Auto) (0.02-0.10) K/uL Sodium 131 L (136-145) mmol/L Potassium 3.9 (3.5-5.1) mmol/L Chloride 99 (98-107) mmol/L Carbon Dioxide 24.8 (21.0-32.0) mmol/L Anion Gap 11.1 (5.0-15.0) mmol/L BUN 11 (8-26) mg/dL Creatinine 0.78 (0.55-1.02) mg/dL Est Cr Clr Drug Dosing 41.24 mL/min Estimated GFR (MDRD) > 60 (>60) MLS/MIN BUN/Creatinine Ratio 14.1 (6-25) Glucose 113 H (74-100) mg/dL Calcium 9.6 (8.5-10.1) mg/dL Troponin I (0.000-0.060) ng/mL Lipase (73-393) U/L Urine Color Yellow Urine Appearance Slightly cloudy (CLEAR) Urine pH 7.5 (5.0-8.0) Ur Specific [place] 1.020 (1.003-1.030) Urine Protein Negative (NEGATIVE) mg/dL Urine Glucose (UA) Negative (NEGATIVE) mg/dL Urine Ketones Negative (NEGATIVE) mg/dL Urine Occult Blood Negative (NEGATIVE) Urine Nitrite Negative (NEGATIVE) Urine Bilirubin Negative (NEGATIVE) Urine Urobilinogen 0.2 (0.2-1.0) E.U./dL Ur Leukocyte Esterase Small H (NEGATIVE) Urine RBC 0-5 H /HPF Urine WBC 10-20 H /HPF Ur Squamous Epith Cells Many /HPF Amorphous Sediment Few /HPF Urine Bacteria Few /HPF Ketones (NEGATIVE) SARS-CoV-2 RNA (PERRY) Negative (NEGATIVE) Meds: Medications Generic Name Dose Route Start Last Admin Trade Name Freq PRN Reason Stop Dose Admin Sodium Chloride 1,000 mls @ 250 mls/hr 05/25/21 08:15 05/25/21 08:21 Normal Saline IV 250 mls/hr ASDIRECTED SHARONDA Administration Polyethylene Glycol 17 gm 05/25/21 09:21 Polyethylene Glycol 3350 Powder 17 Gm Packet PO DAILY PRN Constipation Sodium Chloride 10 ml 05/25/21 08:09 05/25/21 08:20 Sodium Chloride 0.9% 10 Ml Syringe FLUSH 10 ml ASDIRECTED PRN Administration Keep Vein Open Departure - Departure Time of Disposition: 11:30 Disposition: Admitted As Inpatient 64 Condition: Fair Clinical Impression: Weakness, Anorexia - Discharge Information *PRESCRIPTION DRUG MONITORING PROGRAM REVIEWED*: No *COPY OF PRESCRIPTION DRUG MONITORING REPORT IN PATIENT ALEXA: No Sepsis Event Note (ED) - Evaluation Sepsis Screening Result: No Definite Risk - Focused Exam Vital Signs: Vital Signs Temp Pulse Resp BP Pulse Ox 05/25/21 07:18 97.0 F 81 16 189/101 H 95 - My Orders Last 24 Hours: My Active Orders 05/25/21 07:43 CULTURE URINE [RM] Stat 05/25/21 08:09 Sodium Chloride 0.9% [Saline Flush] 10 ml FLUSH ASDIRECTED PRN Peripheral IV Insertion Adult [OM.PC] Urgent 05/25/21 08:15 Sodium Chloride 0.9% [Normal Saline] 1,000 ml IV ASDIRECTED - Assessment/Plan Last 24 Hours: My Active Orders 05/25/21 07:43 CULTURE URINE [RM] Stat 05/25/21 08:09 Sodium Chloride 0.9% [Saline Flush] 10 ml FLUSH ASDIRECTED PRN Peripheral IV Insertion Adult [OM.PC] Urgent 05/25/21 08:15 Sodium Chloride 0.9% [Normal Saline] 1,000 ml IV ASDIRECTED Assessment:: 86-year-old female presents to the ED complaining of weakness via ambulance, patient is slightly confused having a difficult time articulating what is going on. We will be addressing the following problems: 1. Hyponatremia. 2. Weakness. 3. Confusion. 4. Decreased oral intake/anorexia Plan: We will address hyponatremia with normal saline infusion. Weakness/confusion/anorexia will be addressed with offering nutrition continually to include Ensure and address patient's abdominal pain secondary to oral intake. Discussed with family issues surrounding cancer and end-of-life care. Keep patient comfortable.
[2021-05-25] MEDS: Sodium Chloride 0.9% 1,000 ML IV SCH ×2 (12:00→22:00)
[2021-05-25] MEDS: Acetaminophen 325 MG Tab PO PRN (14:28)
[2021-05-25] MEDS: Metoprolol Succinate 50 MG Tab.ER PO SCH (19:40)
[2021-05-25] MEDS: Aspirin 81 MG Tab.Chew PO SCH (19:40)
[2021-05-25] MEDS: atorvaSTATin 20 MG Tab PO SCH (19:40)
[2021-05-25] MEDS: traMADol 50 MG Tab PO PRN (21:05)
[2021-05-25] MEDS ORDERED: LORazepam 1 MG Tab PO PRN (22:55)
[2021-05-26] MEDS: Acetaminophen 325 MG Tab PO PRN ×2 (04:44→12:11)
[2021-05-26] MEDS: Levothyroxine 75 MCG Tab PO SCH (07:53)
[2021-05-26] MEDS: CANDESARTAN 32 MG PO SCH (08:00)
[2021-05-26] MEDS: Sodium Chloride 0.9% 1,000 ML IV SCH ×2 (08:21→21:10)
[2021-05-26] MEDS ORDERED: LORazepam 1 MG Tab PO PRN (11:42)
--- NOTE | 2021-05-26 11:46 | PN ---
DATE OF VISIT: 05/26/2021 SUBJECTIVE: Mrs. Barclay was somewhat restless last night and did require some lorazepam to assist her in sleeping and that worked very well after receiving 2 mg. In fact she may have gotten a bit too much and that she has been sleeping all morning. She is arousable and answers questions appropriately. She states that she is comfortable and feels okay. Her appetite is decreased and this is not a new change. She does ambulate. OBJECTIVE: GENERAL: She appears slightly pale. VITAL SIGNS: Her blood pressure was 207/93. It was lower than that earlier this morning. Her heart rate is 82, she is afebrile, respiratory rate 18, O2 sats 95% on room air. CHEST: Clear to auscultation. CARDIAC: Regular rate without murmur. ABDOMEN: Soft and nontender. IMPRESSION: She is reasonably comfortable. She has metastatic cancer. I did review her past history with her daughter, Terra, who was present on rounds this morning. She apparently did have a right pulmonary lobectomy 7 years ago. She has not received any chemotherapy, they have been aware for quite some time that she has metastatic disease and they are all in agreement that the main focus at this point should be that of comfort measures given her age and her advanced cancer. It appears at this point we are accomplishing that. She understands and agrees. We may need to make further arrangements in terms of her care going forward, but this will involve some participation by a social worker palliative care. LOUANN /[id number]
[2021-05-26] MEDS: Polyethylene Glycol 3350 Powder 17 GM Packet PO PRN (18:16)
[2021-05-26] MEDS: Aspirin 81 MG Tab.Chew PO SCH (19:35)
[2021-05-26] MEDS: traMADol 50 MG Tab PO PRN (19:35)
[2021-05-26] MEDS: atorvaSTATin 20 MG Tab PO SCH (19:35)
[2021-05-26] MEDS: Metoprolol Succinate 50 MG Tab.ER PO SCH (19:35)
[2021-05-27] MEDS: Acetaminophen 325 MG Tab PO PRN (02:45)
[2021-05-27] MEDS: Levothyroxine 75 MCG Tab PO SCH (06:14)
[2021-05-27] MEDS: CANDESARTAN 32 MG PO SCH (07:32)
[2021-05-27] MEDS: Polyethylene Glycol 3350 Powder 17 GM Packet PO PRN (07:46)
[2021-05-27] MEDS: traMADol 50 MG Tab PO PRN ×2 (07:46→15:30)
--- NOTE | 2021-05-27 10:20 | PN ---
DATE OF VISIT: 05/27/2021 SUBJECTIVE: Veronique seemed somewhat drowsy this morning, but she is arousable and answers questions appropriately. She does complain of some pain in her right ear probably from laying on her right side with her right ear up against the pillow. She has been sleeping well. She slept well last night and did not require any additional lorazepam. She is afebrile. Her blood pressure has been running high with systolics ranging between 190 and 200 and diastolics running in the 90s. It was noted, however, that she was placed on losartan 320 mg p.o. daily, and this is not her usual medication that she takes at home, which was a different ARB. She is at home taking Candesartan 32 mg per day, and they did bring in her home medications, so we can begin giving those to her while she is in the hospital. Yesterday, for some reason, her losartan was not given, which might explain why her blood pressure is 208/100 this morning. OBJECTIVE: HEENT: Her right ear does not look inflamed. External canals are normal. Her ears not tender to manipulation. CHEST: Her chest is clear. ABDOMEN: Her abdomen is soft. IMPRESSION: She is comfortable at this time. PLAN: We have started her back up on her candesartan for her hypertension. BURTON/TOÑO /[id number]
[2021-05-27] MEDS: Sodium Chloride 0.9% 1,000 ML IV SCH ×2 (10:25→23:34)
[2021-05-27] MEDS ORDERED: LORazepam 0.5 MG Tab PO PRN (10:35)
[2021-05-27] MEDS ORDERED: Morphine 2 MG/ML SYRINGE IVPUSH ONE (12:21)
[2021-05-27] MEDS ORDERED: Morphine 2 MG/ML SYRINGE ONE (12:35)
[2021-05-27] MEDS: Metoprolol Succinate 50 MG Tab.ER PO SCH (20:38)
[2021-05-27] MEDS: Aspirin 81 MG Tab.Chew PO SCH (20:38)
[2021-05-27] MEDS: Morphine 2 MG/ML SYRINGE IVPUSH PRN (20:38)
[2021-05-27] MEDS: atorvaSTATin 20 MG Tab PO SCH (20:38)
[2021-05-28] MEDS: Morphine 2 MG/ML SYRINGE IVPUSH PRN ×5 (00:42→22:20)
[2021-05-28] MEDS: Levothyroxine 75 MCG Tab PO SCH (06:09)
[2021-05-28] MEDS: traMADol 50 MG Tab PO PRN ×2 (08:20→19:40)
[2021-05-28] MEDS: CANDESARTAN 32 MG PO SCH (08:20)
[2021-05-28] MEDS: Polyethylene Glycol 3350 Powder 17 GM Packet PO PRN (08:21)
[2021-05-28] MEDS ORDERED: Lactated Ringers 500 ML IV ONE (11:30)
[2021-05-28] MEDS ORDERED: Magnesium Citrate Solution 296 ML Bottle PO ONE (11:30)
--- NOTE | 2021-05-28 11:32 | PCM.PN ---
- General Info Date of Service: 05/28/21 Functional Status: Reports: Pain Controlled - Review of Systems General: Reports: Fatigue, Malaise HEENT: Reports: No Symptoms Pulmonary: Reports: No Symptoms Cardiovascular: Reports: No Symptoms Gastrointestinal: Reports: Constipation, Decreased Appetite Musculoskeletal: Reports: Back Pain Skin: Reports: No Symptoms Neurological: Reports: Difficulty Walking Psychiatric: Reports: No Symptoms - Patient Data Vitals - Most Recent: Last Vital Signs Temp 36.8 C 05/28/21 08:00 Pulse 73 05/28/21 08:00 Resp 16 05/28/21 08:00 BP 191/85 H 05/28/21 08:00 Pulse Ox 95 05/28/21 08:00 Weight - Most Recent: 76.839 kg I&O - Last 24 Hours: Intake & Output 05/27/21 05/28/21 05/28/21 22:59 06:59 14:59 Intake Total 900 750 Balance 900 750 Lab Results Last 24 Hours: Laboratory Results - last 24 hr 05/28/21 Range/Units 08:51 Sodium 133 L (136-145) mmol/L Potassium 3.9 (3.5-5.1) mmol/L Chloride 101 (98-107) mmol/L Carbon Dioxide 25.5 (21.0-32.0) mmol/L Anion Gap 10.4 (5.0-15.0) mmol/L BUN 8 D (8-26) mg/dL Creatinine 0.71 (0.55-1.02) mg/dL Est Cr Clr Drug Dosing 45.31 mL/min Estimated GFR (MDRD) > 60 (>60) MLS/MIN BUN/Creatinine Ratio 11.3 (6-25) Glucose 126 H (74-100) mg/dL Calcium 9.5 (8.5-10.1) mg/dL Phosphorus 3.5 (2.5-4.9) mg/dL Magnesium 1.6 L (1.8-2.4) mg/dL [facility] Results Last 24 Hours: Microbiology 05/25/21 07:43 Urine Culture - Final Urine, Voided MIXED POSITIVE [facility]HA[facility] DAY 2 Med Orders - Current: Current Medications Acetaminophen (Acetaminophen 325 Mg Tab) 650 mg PO Q6H PRN PRN Reason: Pain (mild 1-3) Last Admin: 05/27/21 02:45 Dose: 650 mg Documented by: Aspirin (Aspirin 81 Mg Tab.Chew) 81 mg PO QPM [facility] Last Admin: 05/27/21 20:38 Dose: 81 mg Documented by: Atorvastatin Calcium (Atorvastatin 20 Mg Tab) 20 mg PO QPM [facility] Last Admin: 05/27/21 20:38 Dose: 20 mg Documented by: Fentanyl (Fentanyl 12 Mcg/Hr Transdermal Patch) 12 mcg TRDERM Q72H [facility] Hydralazine HCl (Hydralazine 10 Mg Tab) 10 mg PO Q8H [facility] Lactated Ringer's (Ringers, Lactated) 1,000 mls @ 125 mls/hr IV ASDIRECTED [facility] Lactated Ringer's (Ringers, Lactated) 500 mls @ 500 mls/hr IV ONETIME ONE Stop: 05/28/21 12:29 Levothyroxine Sodium (Levothyroxine 75 Mcg Tab) 75 mcg PO ACBREAKFAST [facility] Last Admin: 05/28/21 06:09 Dose: 75 mcg Documented by: Lorazepam (Lorazepam 0.5 Mg Tab) 0.5 mg PO Q2H PRN PRN Reason: Insomnia Magnesium Citrate (Magnesium Citrate Solution 296 Ml Bottle) 296 ml PO ONETIME ONE Stop: 05/28/21 11:31 Metoprolol Succinate (Metoprolol Succinate 50 Mg Tab.Er) 50 mg PO QPM [facility] Last Admin: 05/27/21 20:38 Dose: 50 mg Documented by: Morphine Sulfate (Morphine 2 Mg/Ml Syringe) 1 mg IVPUSH Q4H PRN PRN Reason: Pain Last Admin: 05/28/21 05:05 Dose: 1 mg Documented by: Candesartan [Atacand ] 32 Mg TablePt Own 32 mg PO DAILY [facility] Last Admin: 05/28/21 08:20 Dose: 32 mg Documented by: Polyethylene Glycol (Polyethylene Glycol 3350 Powder 17 Gm Packet) 17 gm PO BID [facility] Sodium Chloride (Sodium Chloride 0.9% 10 Ml Syringe) 10 ml FLUSH ASDIRECTED PRN PRN Reason: Keep Vein Open Last Admin: 05/25/21 08:20 Dose: 10 ml Documented by: Tramadol HCl (Tramadol 50 Mg Tab) 50 mg PO Q8H PRN PRN Reason: Pain Last Admin: 05/28/21 08:20 Dose: 50 mg Documented by: Discontinued Medications Sodium Chloride (Normal Saline) 1,000 mls @ 250 mls/hr IV ASDIRECTED [facility] Last Admin: 05/25/21 08:21 Dose: 250 mls/hr Documented by: Sodium Chloride (Normal Saline) 1,000 mls @ 100 mls/hr IV ASDIRECTED [facility] Last Admin: 05/27/21 23:34 Dose: 100 mls/hr Documented by: Lorazepam (Lorazepam 1 Mg Tab) 2 mg PO Q2H PRN PRN Reason: Insomnia Last Admin: 05/25/21 23:25 Dose: 2 mg Documented by: Lorazepam (Lorazepam 1 Mg Tab) 1 mg PO Q2H PRN PRN Reason: Insomnia Last Admin: 05/26/21 21:07 Dose: 1 mg Documented by: Morphine Sulfate (Morphine 2 Mg/Ml Syringe) 2 mg IVPUSH ONETIME ONE Stop: 05/27/21 12:22 Last Admin: 05/27/21 13:13 Dose: 1 mg Documented by: Morphine Sulfate (Morphine 2 Mg/Ml Syringe) Confirm Administered Dose 2 mg .ROUTE .STK-MED ONE Stop: 05/27/21 12:36 Last Admin: 05/27/21 13:14 Dose: Not Given Documented by: Polyethylene Glycol (Polyethylene Glycol 3350 Powder 17 Gm Packet) 17 gm PO DAILY PRN PRN Reason: Constipation Last Admin: 05/28/21 08:21 Dose: 17 gm Documented by: Valsartan (Valsartan 80 Mg Tab) 320 mg PO DAILY [facility] Last Admin: 05/26/21 12:12 Dose: Not Given Documented by: - Exam General: Alert, Oriented, Cooperative, No Acute Distress HEENT: Pupils Equal, Pupils Reactive Lungs: Normal Respiratory Effort Cardiovascular: Regular Rate, Regular Rhythm GI/Abdominal Exam: Normal Bowel Sounds, Distended. No: Guarding, Rebound, Tender Extremities: Normal Inspection, Normal Range of Motion, Non-Tender, No Pedal Edema Neurological: No New Focal Deficit Psy/Mental Status: Alert, Normal Affect - Patient Data Lab Results Last 24 hrs: Laboratory Results - last 24 hr 05/28/21 Range/Units 08:51 Sodium 133 L (136-145) mmol/L Potassium 3.9 (3.5-5.1) mmol/L Chloride 101 (98-107) mmol/L Carbon Dioxide 25.5 (21.0-32.0) mmol/L Anion Gap 10.4 (5.0-15.0) mmol/L BUN 8 D (8-26) mg/dL Creatinine 0.71 (0.55-1.02) mg/dL Est Cr Clr Drug Dosing 45.31 mL/min Estimated GFR (MDRD) > 60 (>60) MLS/MIN BUN/Creatinine Ratio 11.3 (6-25) Glucose 126 H (74-100) mg/dL Calcium 9.5 (8.5-10.1) mg/dL Phosphorus 3.5 (2.5-4.9) mg/dL Magnesium 1.6 L (1.8-2.4) mg/dL Result Diagrams: 05/25/21 07:37 05/28/21 08:51 [place] Results Last 24 hrs: Microbiology 05/25/21 07:43 Urine Culture - Final Urine, Voided MIXED POSITIVE [facility] DAY 2 Sepsis Event Note - Evaluation Sepsis Screening Result: No Definite Risk - Focused Exam Vital Signs: Vital Signs Temp Pulse Resp BP Pulse Ox 05/28/21 08:00 36.8 C 73 16 191/85 H 95 05/28/21 04:50 36.4 C 74 18 197/95 H 95 05/28/21 00:41 36.6 C 80 16 201/96 H 96 - Problem List & Annotations (1) Cancer, metastatic to bone Status: Acute Priority: High Current Visit: Yes (2) Cancer, metastatic to lung Status: Acute Priority: High Current Visit: Yes Qualifiers: Laterality: bilateral Qualified Code(s): C78.01 - Secondary malignant neoplasm of right lung; C78.02 - Secondary malignant neoplasm of left lung (3) 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 SNOMED Code(s): 94422460, 339766536 Code(s): M48.50XA - COLLAPSED VERTEBRA, NEC, SITE UNSP, INIT; Z85.9 - PERSONAL HISTORY OF MALIGNANT NEOPLASM, UNSPECIFIED Status: Acute Priority: High Current Visit: Yes (4) Dehydration with hyponatremia SNOMED Code(s): 80680087 Code(s): E86.0 - DEHYDRATION; E87.1 - HYPO-OSMOLALITY AND HYPONATREMIA Status: Acute Priority: Medium Current Visit: Yes (5) Failure to thrive in adult SNOMED Code(s): 223398158 Code(s): R62.7 - ADULT FAILURE TO THRIVE Status: Acute Priority: Medium Current Visit: Yes - Problem List Review Problem List Initiated/Reviewed/Updated: Yes - My Orders Last 24 Hours: My Active Orders 05/28/21 11:30 Lactated Ringers [Ringers, Lactated] 1,000 ml IV ASDIRECTED Lactated Ringers [Ringers, Lactated] 500 ml IV ONETIME Magnesium Citrate [Citrate of Magnesia] 296 ml PO ONETIME ONE fentaNYL [Duragesic] 12 mcg TRDERM Q72H hydrALAZINE [Apresoline] 10 mg PO Q8H 05/28/21 20:00 polyethylene glycoL 3350 [MiraLAX] 17 gm PO BID - Plan Plan:: 86 y.o F who was admitted to the floor for management of her FTT and dehydration related to her colon CA with mets. 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 ). given that it is terminal - patient doesn't want any chemo or radiotherapy, but comfort care and pain control 2- back pain, Acute - uncontrolled at home: Was started on IV morphine for breakthrough and Tramadol as needed in between. Reports her pain is better but still there. Will add fentanyl patch 12 mcg 3- Dehydration and ( failure to thrive) FTT: due to lack of PO intake and decreased appetite. On IV fluids, will resume this until dehydration status is corrected 4- Constipation: probably 2/2 Colon Cancer and chronic opioids use Will resume Miralax and add Dulcolax. 5- case management and PT/OT will be consulted for discharges planning. Patient lives at home alone and has no support. Can't return back due to lack of support. Will need a plan for long-term care. 6- Uncontrolled HTN: Already on home medications. Will resume those and add Hydralazine to the regimen
[2021-05-28] MEDS: hydrALAZINE 10 MG Tab PO SCH ×2 (13:53→19:40)
[2021-05-28] MEDS: Magnesium Oxide 400 MG Tab PO SCH (13:53)
[2021-05-28] MEDS ORDERED: Magnesium Citrate Solution 296 ML Bottle ONE (13:54)
[2021-05-28] MEDS: fentaNYL 12 MCG/HR Transdermal Patch TRDERM SCH (13:54)
[2021-05-28] MEDS ORDERED: fentaNYL 12 MCG/HR Transdermal Patch TRDERM SCH (14:00)
[2021-05-28] MEDS: Lactated Ringers 1,000 ML IV SCH ×2 (14:25→18:35)
[2021-05-28] MEDS: Metoprolol Succinate 50 MG Tab.ER PO SCH (19:39)
[2021-05-28] MEDS: Aspirin 81 MG Tab.Chew PO SCH (19:39)
[2021-05-28] MEDS: atorvaSTATin 20 MG Tab PO SCH (19:39)
[2021-05-28] MEDS: Polyethylene Glycol 3350 Powder 17 GM Packet PO SCH (19:41)
[2021-05-29] MEDS: Acetaminophen 325 MG Tab PO PRN ×2 (01:15→23:33)
[2021-05-29] MEDS: Lactated Ringers 1,000 ML IV SCH ×2 (02:02→10:05)
[2021-05-29] MEDS: Morphine 2 MG/ML SYRINGE IVPUSH PRN ×3 (05:10→19:30)
[2021-05-29] MEDS: hydrALAZINE 10 MG Tab PO SCH ×3 (05:10→19:31)
[2021-05-29] MEDS: Levothyroxine 75 MCG Tab PO SCH (06:41)
[2021-05-29] MEDS: Magnesium Oxide 400 MG Tab PO SCH (08:13)
[2021-05-29] MEDS: traMADol 50 MG Tab PO PRN ×2 (08:13→23:31)
[2021-05-29] MEDS: CANDESARTAN 32 MG PO SCH (08:14)
[2021-05-29] MEDS: Polyethylene Glycol 3350 Powder 17 GM Packet PO SCH ×2 (08:14→19:37)
--- NOTE | 2021-05-29 17:46 | PCM.PN ---
- General Info Date of Service: 05/29/21 Functional Status: Reports: Urinating Pain Score: 7 - Review of Systems General: Reports: Weakness, Fatigue, Malaise, Appetite HEENT: Reports: No Symptoms Pulmonary: Reports: No Symptoms Cardiovascular: Reports: No Symptoms Gastrointestinal: Reports: No Symptoms Musculoskeletal: Reports: Neck Pain, Back Pain Neurological: Reports: No Symptoms - Patient Data Vitals - Most Recent: Last Vital Signs Temp 36.4 C 05/29/21 08:27 Pulse 71 05/29/21 13:00 Resp 20 05/29/21 13:00 BP 174/66 H 05/29/21 13:00 Pulse Ox 95 05/29/21 13:00 Weight - Most Recent: 76.657 kg I&O - Last 24 Hours: Intake & Output 05/29/21 05/29/21 05/29/21 06:59 14:59 22:59 Intake Total 1400 Balance 1400 Med Orders - Current: Current Medications Acetaminophen (Acetaminophen 325 Mg Tab) 650 mg PO Q6H PRN PRN Reason: Pain (mild 1-3) Last Admin: 05/29/21 01:15 Dose: 650 mg Documented by: Aspirin (Aspirin 81 Mg Tab.Chew) 81 mg PO QPM [facility] Last Admin: 05/28/21 19:39 Dose: 81 mg Documented by: Atorvastatin Calcium (Atorvastatin 20 Mg Tab) 20 mg PO QPM [facility] Last Admin: 05/28/21 19:39 Dose: 20 mg Documented by: Fentanyl (Fentanyl 25 Mcg/Hr Transdermal Patch) 25 mcg TRDERM Q72H [facility] Hydralazine HCl (Hydralazine 10 Mg Tab) 10 mg PO Q8H [facility] Last Admin: 05/29/21 12:32 Dose: 10 mg Documented by: Lactated Ringer's (Ringers, Lactated) 1,000 mls @ 125 mls/hr IV ASDIRECTED [facility] Last Admin: 05/29/21 10:05 Dose: 125 mls/hr Documented by: Levothyroxine Sodium (Levothyroxine 75 Mcg Tab) 75 mcg PO ACBREAKFAST [facility] Last Admin: 05/29/21 06:41 Dose: 75 mcg Documented by: Lorazepam (Lorazepam 0.5 Mg Tab) 0.5 mg PO Q2H PRN PRN Reason: Insomnia Magnesium Oxide (Magnesium Oxide 400 Mg Tab) 400 mg PO DAILY [facility] Last Admin: 05/29/21 08:13 Dose: 400 mg Documented by: Metoprolol Succinate (Metoprolol Succinate 50 Mg Tab.Er) 50 mg PO QPM [facility] Last Admin: 05/28/21 19:39 Dose: 50 mg Documented by: Miscellaneous Information (Remove Patch) 1 ea TRDERM Q72H [facility] Morphine Sulfate (Morphine 2 Mg/Ml Syringe) 2 mg IVPUSH Q4H PRN PRN Reason: Pain Candesartan [Atacand ] 32 Mg TablePt Own 32 mg PO DAILY [facility] Last Admin: 05/29/21 08:14 Dose: 32 mg Documented by: Polyethylene Glycol (Polyethylene Glycol 3350 Powder 17 Gm Packet) 17 gm PO BID [facility] Last Admin: 05/29/21 08:14 Dose: 17 gm Documented by: Sodium Chloride (Sodium Chloride 0.9% 10 Ml Syringe) 10 ml FLUSH ASDIRECTED PRN PRN Reason: Keep Vein Open Last Admin: 05/25/21 08:20 Dose: 10 ml Documented by: Tramadol HCl (Tramadol 50 Mg Tab) 50 mg PO Q8H PRN PRN Reason: Pain Last Admin: 05/29/21 08:13 Dose: 50 mg Documented by: Discontinued Medications Fentanyl (Fentanyl 12 Mcg/Hr Transdermal Patch) 12 mcg TRDERM Q72H [facility] Fentanyl (Fentanyl 12 Mcg/Hr Transdermal Patch) 12 mcg TRDERM Q72H [facility] Last Admin: 05/28/21 13:59 Dose: 12 mcg Documented by: Sodium Chloride (Normal Saline) 1,000 mls @ 250 mls/hr IV ASDIRECTED [facility] Last Admin: 05/25/21 08:21 Dose: 250 mls/hr Documented by: Sodium Chloride (Normal Saline) 1,000 mls @ 100 mls/hr IV ASDIRECTED [facility] Last Admin: 05/27/21 23:34 Dose: 100 mls/hr Documented by: Lactated Ringer's (Ringers, Lactated) 500 mls @ 500 mls/hr IV ONETIME ONE Stop: 05/28/21 12:29 Last Admin: 05/28/21 13:30 Dose: 500 mls/hr Documented by: Lorazepam (Lorazepam 1 Mg Tab) 2 mg PO Q2H PRN PRN Reason: Insomnia Last Admin: 05/25/21 23:25 Dose: 2 mg Documented by: Lorazepam (Lorazepam 1 Mg Tab) 1 mg PO Q2H PRN PRN Reason: Insomnia Last Admin: 05/26/21 21:07 Dose: 1 mg Documented by: Magnesium Citrate (Magnesium Citrate Solution 296 Ml Bottle) 296 ml PO ONETIME ONE Stop: 05/28/21 11:31 Last Admin: 05/28/21 13:54 Dose: 296 ml Documented by: Magnesium Citrate (Magnesium Citrate Solution 296 Ml Bottle) Confirm Administered Dose 296 ml .ROUTE .STK-MED ONE Stop: 05/28/21 13:55 Last Admin: 05/28/21 13:56 Dose: Not Given Documented by: Miscellaneous Information (Remove Patch) 1 ea TRDERM Q72H [facility] Last Admin: 05/28/21 13:58 Dose: Not Given Documented by: Miscellaneous Information (Remove Patch) 1 ea TRDERM Q72H [facility] Morphine Sulfate (Morphine 2 Mg/Ml Syringe) 2 mg IVPUSH ONETIME ONE Stop: 05/27/21 12:22 Last Admin: 05/27/21 13:13 Dose: 1 mg Documented by: Morphine Sulfate (Morphine 2 Mg/Ml Syringe) Confirm Administered Dose 2 mg .ROUTE .STK-MED ONE Stop: 05/27/21 12:36 Last Admin: 05/27/21 13:14 Dose: Not Given Documented by: Morphine Sulfate (Morphine 2 Mg/Ml Syringe) 1 mg IVPUSH Q4H PRN PRN Reason: Pain Last Admin: 05/29/21 15:49 Dose: 2 mg Documented by: Polyethylene Glycol (Polyethylene Glycol 3350 Powder 17 Gm Packet) 17 gm PO DAILY PRN PRN Reason: Constipation Last Admin: 05/28/21 08:21 Dose: 17 gm Documented by: Valsartan (Valsartan 80 Mg Tab) 320 mg PO DAILY [facility] Last Admin: 05/26/21 12:12 Dose: Not Given Documented by: - Exam General: Alert, Oriented, Cooperative HEENT: Pupils Equal, Pupils Reactive Lungs: Normal Respiratory Effort Cardiovascular: Regular Rate, Regular Rhythm GI/Abdominal Exam: Normal Bowel Sounds, Soft, Non-Tender Neurological: No New Focal Deficit Psy/Mental Status: Alert, Normal Affect, Depressed - Patient Data Result Diagrams: 05/25/21 07:37 05/28/21 08:51 Sepsis Event Note - Evaluation Sepsis Screening Result: No Definite Risk - Focused Exam Vital Signs: Vital Signs Temp Pulse Resp BP BP Pulse Ox 05/29/21 13:00 71 20 174/66 H 95 05/29/21 12:32 174/66 H 05/29/21 08:27 36.4 C 70 20 179/81 H 95 - Problem List & Annotations (1) Cancer, metastatic to bone Status: Acute Priority: High Current Visit: Yes (2) Cancer, metastatic to lung Status: Acute Priority: High Current Visit: Yes Qualifiers: Laterality: bilateral Qualified Code(s): C78.01 - Secondary malignant neoplasm of right lung; C78.02 - Secondary malignant neoplasm of left lung (3) 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 SNOMED Code(s): 90634674, [id number] Code(s): M48.50XA - COLLAPSED VERTEBRA, NEC, SITE UNSP, INIT; Z85.9 - PERSONAL HISTORY OF MALIGNANT NEOPLASM, UNSPECIFIED Status: Acute Priority: High Current Visit: Yes (4) Dehydration with hyponatremia SNOMED Code(s): 85758490 Code(s): E86.0 - DEHYDRATION; E87.1 - HYPO-OSMOLALITY AND HYPONATREMIA Status: Acute Priority: Medium Current Visit: Yes (5) Failure to thrive in adult SNOMED Code(s): 249074846 Code(s): R62.7 - ADULT FAILURE TO THRIVE Status: Acute Priority: Medium Current Visit: Yes - Problem List Review Problem List Initiated/Reviewed/Updated: Yes - My Orders Last 24 Hours: My Active Orders 05/28/21 20:00 polyethylene glycoL 3350 [MiraLAX] 17 gm PO BID 05/29/21 17:45 Remove Patch 1 ea TRDERM Q72H 05/29/21 18:00 fentaNYL [Duragesic] 25 mcg TRDERM Q72H - Plan Plan:: 86 y.o F who was admitted to the floor for management of her failure to thrive and dehydration related to her colon CA with mets. 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 ). given that it is terminal - patient doesn't want any chemo or radiotherapy, but comfort care and pain control measure. 2- back pain, Acute - uncontrolled at home: Was started on IV morphine for breakthrough and Tramadol as needed in between. Reports her pain is better but still there. Will add fentanyl patch 12 mcg and adjust as needed 3- Dehydration and ( failure to thrive) FTT: due to lack of PO intake and decreased appetite. On IV fluids, will resume this until dehydration status is corrected 4- Constipation: probably 2/2 Colon Cancer and chronic opioids use Will resume Miralax and add Dulcolax. 5- case management and PT/OT will be consulted for discharges planning. Patient lives at home alone and has no support. Can't return back due to lack of support. Will need a plan for long-term care. 6- Uncontrolled HTN: Already on home medications. Will resume those and add Hydralazine to the regimen anticipate d/c to swing bed for comfort care once no more needing IV pain medications.
[2021-05-29] MEDS ORDERED: Morphine Solution 10 MG/5 ML ML 100 ML Bottle PO PRN (17:47)
[2021-05-29] MEDS ORDERED: fentaNYL 25 MCG/HR Transdermal Patch TRDERM SCH (18:00)
[2021-05-29] MEDS: atorvaSTATin 20 MG Tab PO SCH (19:29)
[2021-05-29] MEDS: Aspirin 81 MG Tab.Chew PO SCH (19:29)
[2021-05-29] MEDS: Metoprolol Succinate 50 MG Tab.ER PO SCH (19:33)
[2021-05-30] MEDS: hydrALAZINE 10 MG Tab PO SCH ×3 (05:59→20:55)
[2021-05-30] MEDS: CANDESARTAN 32 MG PO SCH (07:51)
[2021-05-30] MEDS: Levothyroxine 75 MCG Tab PO SCH (07:51)
[2021-05-30] MEDS: Magnesium Oxide 400 MG Tab PO SCH (07:51)
[2021-05-30] MEDS: Polyethylene Glycol 3350 Powder 17 GM Packet PO SCH ×2 (08:22→21:35)
[2021-05-30] MEDS: Morphine 2 MG/ML SYRINGE IVPUSH PRN ×2 (08:51→13:34)
[2021-05-30] MEDS: fentaNYL 12 MCG/HR Transdermal Patch TRDERM SCH (10:40)
[2021-05-30] MEDS: traMADol 50 MG Tab PO PRN (16:31)
[2021-05-30] MEDS: Lactated Ringers 1,000 ML IV SCH (17:05)
--- NOTE | 2021-05-30 19:08 | PCM.PN ---
- General Info Date of Service: 05/30/21 Admission Dx/Problem (Free Text): Failure to thrive, pain, cancer Subjective Update: Patient is continuing to experience debilitating pain, difficulty doing any ADLs, patient no longer taking oral intake since noon yesterday Functional Status: Reports: New Symptoms (Patient anorexic since noon yesterday, only a few sips of water. Patient's pain adequately controlled if patient is not moving, patient could not handle getting up to go the bathroom due to pain patient requested a Escobar so she would not have to get up and increase amount of pain she is in. ), Other (Patient's respiratory drive was decreased secondary to her condition or pain medication, patient had to be placed on nasal cannula 2 L to maintain SPO2 above 92%.) - Review of Systems General: Reports: Weakness, Fatigue, Appetite (Patient anorexic since noon yesterday), Other (Patient in and out of lucidity.) HEENT: Reports: No Symptoms Pulmonary: Reports: No Symptoms Cardiovascular: Reports: No Symptoms Gastrointestinal: Reports: No Symptoms Genitourinary: Reports: No Symptoms Musculoskeletal: Reports: Back Pain, Joint Pain Skin: Reports: No Symptoms Neurological: Reports: Confusion, Trouble Speaking, Weakness Psychiatric: Reports: Confusion - Patient Data Vitals - Most Recent: Last Vital Signs Temp 98.6 F 05/30/21 16:00 Pulse 74 05/30/21 16:00 Resp 16 05/30/21 16:00 BP 208/88 H 05/30/21 16:00 Pulse Ox 96 05/30/21 16:00 Weight - Most Recent: 169 lb I&O - Last 24 Hours: Intake & Output 05/30/21 05/30/21 05/30/21 06:59 14:59 22:59 Intake Total 375 310 Output Total 1175 Balance 375 -865 Med Orders - Current: Current Medications Acetaminophen (Acetaminophen 325 Mg Tab) 650 mg PO Q6H PRN PRN Reason: Pain (mild 1-3) Last Admin: 05/29/21 23:33 Dose: 650 mg Documented by: Aspirin (Aspirin 81 Mg Tab.Chew) 81 mg PO QPM [facility] Last Admin: 05/29/21 19:29 Dose: 81 mg Documented by: Atorvastatin Calcium (Atorvastatin 20 Mg Tab) 20 mg PO QPM [facility] Last Admin: 05/29/21 19:29 Dose: 20 mg Documented by: Fentanyl (Fentanyl 25 Mcg/Hr Transdermal Patch) 25 mcg TRDERM Q72H [facility] Last Admin: 05/29/21 18:13 Dose: 25 mcg Documented by: Hydralazine HCl (Hydralazine 10 Mg Tab) 10 mg PO Q8H [facility] Last Admin: 05/30/21 13:35 Dose: Not Given Documented by: Lactated Ringer's (Ringers, Lactated) 1,000 mls @ 80 mls/hr IV ASDIRECTED [facility] Last Admin: 05/30/21 17:05 Dose: 80 mls/hr Documented by: Levothyroxine Sodium (Levothyroxine 75 Mcg Tab) 75 mcg PO ACBREAKFAST [facility] Last Admin: 05/30/21 07:51 Dose: 75 mcg Documented by: Lorazepam (Lorazepam 0.5 Mg Tab) 0.5 mg PO Q2H PRN PRN Reason: Insomnia Magnesium Oxide (Magnesium Oxide 400 Mg Tab) 400 mg PO DAILY [facility] Last Admin: 05/30/21 07:51 Dose: 400 mg Documented by: Metoprolol Succinate (Metoprolol Succinate 50 Mg Tab.Er) 50 mg PO QPM [facility] Last Admin: 05/29/21 19:33 Dose: 50 mg Documented by: Miscellaneous Information (Remove Patch) 1 ea TRDERM Q72H [facility] Morphine Sulfate (Morphine 2 Mg/Ml Syringe) 2 mg IVPUSH Q4H PRN PRN Reason: Pain Last Admin: 05/30/21 13:34 Dose: 2 mg Documented by: Morphine Sulfate (Morphine Solution 10 Mg/5 Ml Ml 100 Ml Bottle) 4 mg PO Q4H PRN PRN Reason: Pain (moderate 4-6) Candesartan [Atacand ] 32 Mg TablePt Own 32 mg PO DAILY [facility] Last Admin: 05/30/21 07:51 Dose: 32 mg Documented by: Polyethylene Glycol (Polyethylene Glycol 3350 Powder 17 Gm Packet) 17 gm PO BID [facility] Last Admin: 05/30/21 08:22 Dose: Not Given Documented by: Sodium Chloride (Sodium Chloride 0.9% 10 Ml Syringe) 10 ml FLUSH ASDIRECTED PRN PRN Reason: Keep Vein Open Last Admin: 05/25/21 08:20 Dose: 10 ml Documented by: Tramadol HCl (Tramadol 50 Mg Tab) 50 mg PO Q8H PRN PRN Reason: Pain Last Admin: 05/30/21 16:31 Dose: 50 mg Documented by: Discontinued Medications Fentanyl (Fentanyl 12 Mcg/Hr Transdermal Patch) 12 mcg TRDERM Q72H [facility] Last Admin: 05/30/21 10:40 Dose: Not Given Documented by: Fentanyl (Fentanyl 12 Mcg/Hr Transdermal Patch) 12 mcg TRDERM Q72H [facility] Last Admin: 05/28/21 13:59 Dose: 12 mcg Documented by: Sodium Chloride (Normal Saline) 1,000 mls @ 250 mls/hr IV ASDIRECTED [facility] Last Admin: 05/25/21 08:21 Dose: 250 mls/hr Documented by: Sodium Chloride (Normal Saline) 1,000 mls @ 100 mls/hr IV ASDIRECTED [facility] Last Admin: 05/27/21 23:34 Dose: 100 mls/hr Documented by: Lactated Ringer's (Ringers, Lactated) 500 mls @ 500 mls/hr IV ONETIME ONE Stop: 05/28/21 12:29 Last Admin: 05/28/21 13:30 Dose: 500 mls/hr Documented by: Lorazepam (Lorazepam 1 Mg Tab) 2 mg PO Q2H PRN PRN Reason: Insomnia Last Admin: 05/25/21 23:25 Dose: 2 mg Documented by: Lorazepam (Lorazepam 1 Mg Tab) 1 mg PO Q2H PRN PRN Reason: Insomnia Last Admin: 05/26/21 21:07 Dose: 1 mg Documented by: Magnesium Citrate (Magnesium Citrate Solution 296 Ml Bottle) 296 ml PO ONETIME ONE Stop: 05/28/21 11:31 Last Admin: 05/28/21 13:54 Dose: 296 ml Documented by: Magnesium Citrate (Magnesium Citrate Solution 296 Ml Bottle) Confirm Administered Dose 296 ml .ROUTE .STK-MED ONE Stop: 05/28/21 13:55 Last Admin: 05/28/21 13:56 Dose: Not Given Documented by: Miscellaneous Information (Remove Patch) 1 ea TRDERM Q72H [facility] Last Admin: 05/28/21 13:58 Dose: Not Given Documented by: Miscellaneous Information (Remove Patch) 1 ea TRDERM Q72H [facility] Miscellaneous Information (Remove Patch) 1 ea TRDERM Q72H [facility] Last Admin: 05/30/21 10:39 Dose: Not Given Documented by: Morphine Sulfate (Morphine 2 Mg/Ml Syringe) 2 mg IVPUSH ONETIME ONE Stop: 05/27/21 12:22 Last Admin: 05/27/21 13:13 Dose: 1 mg Documented by: Morphine Sulfate (Morphine 2 Mg/Ml Syringe) Confirm Administered Dose 2 mg .ROUTE .STK-MED ONE Stop: 05/27/21 12:36 Last Admin: 05/27/21 13:14 Dose: Not Given Documented by: Morphine Sulfate (Morphine 2 Mg/Ml Syringe) 1 mg IVPUSH Q4H PRN PRN Reason: Pain Last Admin: 05/29/21 15:49 Dose: 2 mg Documented by: Polyethylene Glycol (Polyethylene Glycol 3350 Powder 17 Gm Packet) 17 gm PO DAILY PRN PRN Reason: Constipation Last Admin: 05/28/21 08:21 Dose: 17 gm Documented by: Valsartan (Valsartan 80 Mg Tab) 320 mg PO DAILY [facility] Last Admin: 05/26/21 12:12 Dose: Not Given Documented by: - Exam Quality Assessment: Supplemental Oxygen (Patient was placed on nasal cannula 2 L for low SPO2, which dropped into the 80s after her fentanyl patch was increased), Urine Catheter Urinary Catheter Total Time: 12hrs General: Sedated, Other (Confused, in no distress unless moved) HEENT: Pupils Equal, Other (Pinpoint) Lungs: Clear to Auscultation, Normal Respiratory Effort Cardiovascular: Regular Rate, Regular Rhythm GI/Abdominal Exam: Soft, Non-Tender Extremities: No Pedal Edema Skin: Warm, Dry, Other ([place]) Neurological: Other (Slurred speech, at times disoriented) Psy/Mental Status: Other (Resigned) - Patient Data Result Diagrams: 05/25/21 07:37 05/28/21 08:51 Sepsis Event Note - Evaluation Sepsis Screening Result: No Definite Risk - Focused Exam Vital Signs: Vital Signs Temp Pulse Resp BP Pulse Ox 05/30/21 16:00 98.6 F 74 16 208/88 H 96 05/30/21 08:00 98 05/30/21 07:44 97.8 F 65 14 186/76 H 89 L - Problem List & Annotations (1) Anorexia SNOMED Code(s): 78191449 Code(s): R63.0 - ANOREXIA Status: Acute Current Visit: Yes (2) Cancer, metastatic to bone Status: Acute Priority: High Current Visit: Yes (3) Cancer, metastatic to lung Status: Acute Priority: High Current Visit: Yes Qualifiers: Laterality: bilateral Qualified Code(s): C78.01 - Secondary malignant n eoplasm of right lung; C78.02 - Secondary malignant neoplasm of left lung (4) Failure to thrive in adult SNOMED Code(s): 254201134 Code(s): R62.7 - ADULT FAILURE TO THRIVE Status: Acute Priority: High Current Visit: Yes (5) Weakness SNOMED Code(s): 06738452 Code(s): R53.1 - WEAKNESS Status: Acute Current Visit: Yes - Problem List Review Problem List Initiated/Reviewed/Updated: Yes - My Orders Last 24 Hours: My Active Orders 05/30/21 09:52 Urinary Catheter Assessment [RC] ASDIRECTED 05/30/21 10:00 Urinary Catheter Insertion [Insert Urinary Catheter] [OM.PC] Q24H - Assessment Assessment:: Patient has continued failure to thrive, pain management issues associated with dose and respirations, limited mobility due to pain, new Escobar catheter, and has been anorexic since noon yesterday. - Plan Plan:: 86 y.o F who was admitted to the floor for management of her failure to thrive and dehydration related to her colon CA with mets. 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 ). given that it is terminal - patient doesn't want any chemo or radiotherapy, but comfort care and pain control measure. 2- back pain, Acute - uncontrolled at home: Was started on IV morphine for breakthrough pain. Reports her pain is better but still there. Added fentanyl patch 25 mcg and adjust as needed Decreased respiratory drive, supplemented with 2 L nasal cannula to maintain SPO 2 above 92% 3- Dehydration and ( failure to thrive) FTT: due to lack of PO intake and decreased appetite. On IV fluids, will resume this until dehydration status is corrected, has not improved. We will continue IV hydration 80 mL an hour. 4- Constipation: probably 2/2 Colon Cancer and chronic opioids use Patient stooled this morning, very loose, MiraLAX/Colace held 5- case management and PT/OT will be consulted for discharges planning. Patient lives at home alone and has no support. Can't return back due to lack of support. Will need a plan for long-term care. Preparing for transition to swing bed. 6- Uncontrolled HTN: Already on home medications. Will resume those and add Hydralazine to the regimen anticipate d/c to swing bed for comfort care once medications management adequate, respiratory support established,
[2021-05-30] MEDS: Metoprolol Succinate 50 MG Tab.ER PO SCH (20:55)
[2021-05-30] MEDS: Aspirin 81 MG Tab.Chew PO SCH (20:55)
[2021-05-30] MEDS: atorvaSTATin 20 MG Tab PO SCH (20:55)
[2021-05-31] MEDS: traMADol 50 MG Tab PO PRN (03:59)
[2021-05-31 04:26] VITALS: BP 207/84; PULSE 82
[2021-05-31] MEDS: hydrALAZINE 10 MG Tab PO SCH (04:27)
[2021-05-31] MEDS: Lactated Ringers 1,000 ML IV SCH (05:24)
== END 2021-05-31 09:30 | disposition swing bed (61) | DRG 641 ==
LOC: LB.ED 07:13 → LB.MS 09:05
PROVIDERS: ADMIT Physician Assistant; ATTEND Physician Assistant
DX: R53.1 Weakness (principal); R63.0 Anorexia; E86.0 Dehydration; C18.9 Malignant neoplasm of colon, unspecified; C78.7 Secondary malignant neoplasm of liver and intrahepatic bile duct; Z85.118 Personal history of other malignant neoplasm of bronchus and lung; C79.51 Secondary malignant neoplasm of bone; R62.7 Adult failure to thrive; E87.1 Hypo-osmolality and hyponatremia; M54.9 Dorsalgia, unspecified; K59.00 Constipation, unspecified; I10 Essential (primary) hypertension; F11.90 Opioid use, unspecified, uncomplicated; Z20.822 Contact with and (suspected) exposure to COVID-19; H91.90 Unspecified hearing loss, unspecified ear; E78.00 Pure hypercholesterolemia, unspecified; M19.90 Unspecified osteoarthritis, unspecified site; E03.9 Hypothyroidism, unspecified; K57.90 Diverticulosis of intestine, part unspecified, without perforation or abscess without bleeding; Z86.73 Personal history of transient ischemic attack (TIA), and cerebral infarction without residual deficits; Z87.891 Personal history of nicotine dependence; Z98.49 Cataract extraction status, unspecified eye; Z90.2 Acquired absence of lung [part of]; Z79.82 Long term (current) use of aspirin; Z79.890 Hormone replacement therapy; Z79.899 Other long term (current) drug therapy
CPT/HCPCS: 36415; 51702; 80048; 81001; 82009; 83690; 83735; 84100; 84484; 85025; 87086; 93005; 99285-25; A0425; A0429; A9270-GY; J2270; J7030; J7120; U0002

== ENCOUNTER 2021-05-30 09:15 | Inpatient (IN) | payer MEDICARE, OTHER ==
[2021-05-31] MEDS ORDERED: Tuberculin, PPD 5 Units/0.1 ML 1 ML MDV IDERM ONE (10:48)
[2021-05-31] MEDS ORDERED: Acetaminophen 325 MG Tab PO PRN (12:09)
--- NOTE | 2021-05-31 13:03 | PCM.PN ---
- General Info Date of Service: 05/31/21 Admission Dx/Problem (Free Text): End-of-life care/pain control Subjective Update: Patient continues to decline physically, patient has been anorexic for 24 hours, patient has become more sensitive to painful stimuli even with pain control measures in place Functional Status: Reports: Pain Controlled (With breakthrough pain from movement), Urinating (Escobar catheter in place). Denies: Tolerating Diet, Ambulating, Incentive Spirometry - Review of Systems General: Reports: Weakness, Fatigue, Appetite (Patient has not eaten since noon 05/29, only a few sips of water over the last 3 days) HEENT: Reports: No Symptoms Pulmonary: Reports: No Symptoms Cardiovascular: Reports: No Symptoms Gastrointestinal: Reports: Abdominal Pain, Constipation, Decreased Appetite Genitourinary: Reports: No Symptoms Musculoskeletal: Reports: Back Pain Skin: Reports: No Symptoms Neurological: Reports: Confusion, Weakness, Change in Speech (Slurred speech) Psychiatric: Reports: Confusion - Patient Data Weight - Most Recent: 169 lb Med Orders - Current: Current Medications Acetaminophen (Acetaminophen 325 Mg Tab) 650 mg PO Q6H PRN PRN Reason: Pain Aspirin (Aspirin 81 Mg Tab.Chew) 81 mg PO QPM [facility] Atorvastatin Calcium (Atorvastatin 20 Mg Tab) 20 mg PO QPM [facility] Hydralazine HCl (Hydralazine 10 Mg Tab) 10 mg PO Q8HR [facility] Levothyroxine Sodium (Levothyroxine 75 Mcg Tab) 75 mcg PO ACBREAKFAST [facility] Magnesium Oxide (Magnesium Oxide 400 Mg Tab) 400 mg PO DAILY [facility] Metoprolol Succinate (Metoprolol Succinate 50 Mg Tab.Er) 50 mg PO QPM [facility] Morphine Sulfate (Morphine 2 Mg/Ml Syringe) 2 mg IVPUSH Q4H PRN PRN Reason: Pain (moderate 4-6) Non-Formulary Medication (Candesartan [Atacand]) 32 mg PO DAILY [facility] Discontinued Medications Tuberculin PPD (Tuberculin, Ppd 5 Units/0.1 Ml 1 Ml Mdv) 5 unit IDERM ONETIME ONE Stop: 05/31/21 10:49 - Exam Quality Assessment: Supplemental Oxygen (2 L nasal cannula), Urine Catheter (Escobar) Urinary Catheter Total Time: 1Days 2Hours General: No Acute Distress, Sedated, Lethargic HEENT: Pupils Equal (Pinpoint), EOMI Lungs: Clear to Auscultation, Normal Respiratory Effort Cardiovascular: Other (Regular rate with occasional ectopic beat) GI/Abdominal Exam: Soft, Tender (Right and left upper quadrants, left lower quadrant) Extremities: Non-Tender, No Pedal Edema, Normal Capillary Refill Skin: Warm, Dry, Intact, Other (Patient continues to be pale) Neurological: Other (Patient speech is slurred, patient confused difficulty carrying on coherent conversation) Psy/Mental Status: Other (Patient does not want to talk to anyone including family including healthcare providers, patient extremely fearful of any movement that may cause her pain) Sepsis Event Note - Evaluation Sepsis Screening Result: No Definite Risk - Problem List & Annotations (1) Anorexia SNOMED Code(s): 87586074 Code(s): R63.0 - ANOREXIA Status: Acute Priority: High Current Visit: No (2) Cancer, metastatic to bone Status: Acute Priority: High Current Visit: No (3) Cancer, metastatic to lung Status: Acute Priority: High Current Visit: No Qualifiers: Laterality: bilateral Qualified Code(s): C78.01 - Secondary malignant neopl asm of right lung; C78.02 - Secondary malignant neoplasm of left lung (4) 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 SNOMED Code(s): 59361093, 377142786 Code(s): M48.50XA - COLLAPSED VERTEBRA, NEC, SITE UNSP, INIT; Z85.9 - PERSONAL HISTORY OF MALIGNANT NEOPLASM, UNSPECIFIED Status: Acute Priority: High Current Visit: No (5) Failure to thrive in adult SNOMED Code(s): 743148416 Code(s): R62.7 - ADULT FAILURE TO THRIVE Status: Acute Priority: High Current Visit: No - Problem List Review Problem List Initiated/Reviewed/Updated: Yes - My Orders Last 24 Hours: My Active Orders 05/31/21 09:21 Admission Status [Patient Status] [ADT] Routine 05/31/21 09:25 Code Status [Resuscitation Status] Routine 05/31/21 10:06 Urinary Catheter Assessment [RC] 08,20 Convert IV to Saline Lock [OM.PC] Routine 05/31/21 10:07 JARED Hose [Antiembolic Hose] [OM.PC] Routine 05/31/21 10:15 Escobar Catheter Insertion [Insert Urinary Catheter] [OM.PC] Q24H 05/31/21 12:09 Acetaminophen [TylenoL] 650 mg PO Q6H PRN 05/31/21 12:12 Morphine 2 mg IVPUSH Q4H PRN 05/31/21 14:00 hydrALAZINE [Apresoline] 10 mg PO Q8HR 05/31/21 20:00 Aspirin 81 mg PO QPM Metoprolol Succinate [Toprol XL] 50 mg PO QPM atorvaSTATin [Lipitor] 20 mg PO QPM 06/01/21 07:00 Levothyroxine 75 mcg PO ACBREAKFAST 06/01/21 08:00 Candesartan [Atacand] 32 mg PO DAILY Magnesium Oxide 400 mg PO DAILY - Assessment Assessment:: Patient has continued failure to thrive, anorexia. Patient has limited mobility due to pain, making pain management foremost in her care. - Plan Plan:: 86-year-old female who was admitted to the floor for management of her failure to thrive and dehydration related to metastasized cancer multiple sites. She is being moved from the floor to swing, for continued medical management of her pain, and end-of-life care. 1. Liver mets to spine, and soft tissue Given that the patient is terminalpatient does not want any chemo or radiation therapy, but comfort care and pain control measures. 2. Back pain most likely due to mets Patient's pain is being controlled with: Fentanyl patch 25 mcg, saline lock to remain in place for IV morphine 2 mg every 4 hours as needed for breakthrough pain. Patient was placed on 2 L nasal cannula to maintain SPO2 above 92% s econdary to respiratory depression from narcotics. 3. Failure to thrive/dehydration/anorexia Continue to offer and encourage oral intake including water, Ensure, solid foods. Manage patient's needs as necessary. Will reevaluate medication regimen once patient is no longer taking oral intake of her current medications. 4. Constipation Patient hasn't stooled since 05/29 most likely due to chronic opioid administration, will give medication to address if necessary. 5. Uncontrolled hypertension Patient to continue her home medications for same, added hydralazine to her regimen.
[2021-05-31] MEDS: hydrALAZINE 10 MG Tab PO SCH ×2 (15:29→21:30)
[2021-05-31] MEDS: Morphine 2 MG/ML SYRINGE IVPUSH PRN ×3 (15:31→20:40)
[2021-05-31] MEDS ORDERED: Metoprolol Succinate 50 MG Tab.ER PO SCH (20:00)
[2021-05-31] MEDS ORDERED: Aspirin 81 MG Tab.Chew PO SCH (20:00)
[2021-05-31] MEDS ORDERED: atorvaSTATin 20 MG Tab PO SCH (20:00)
[2021-05-31] MEDS ORDERED: HYDROmorphone 2 MG/ML SDV ONE (21:41)
[2021-06-01] MEDS ORDERED: HYDROmorphone 2 MG/ML SDV IVPUSH STA (00:39)
[2021-06-01] MEDS ORDERED: Levothyroxine 75 MCG Tab PO SCH (07:00)
[2021-06-01] MEDS ORDERED: Magnesium Oxide 400 MG Tab PO SCH (08:00)
[2021-06-01] MEDS ORDERED: hydrALAZINE 20 MG/ML SDV IVPUSH SCH ×2 (08:15→13:45)
[2021-06-01] MEDS: HYDROmorphone 2 MG/ML SDV IVPUSH PRN ×5 (08:30→22:08)
[2021-06-01 09:04] VITALS: BP 191/94; PULSE 90
[2021-06-01] MEDS ORDERED: fentaNYL 25 MCG/HR Transdermal Patch TRDERM SCH (10:00)
[2021-06-01] MEDS ORDERED: Scopolamine 1.5 MG Transdermal Patch TRDERM PRN (10:56)
[2021-06-01] MEDS ORDERED: Polyvinyl Alcohol 1.4% Ophth Soln 15 ML Bottle EYEBOTH PRN (10:56)
[2021-06-01] MEDS: hydrALAZINE 20 MG/ML SDV IVPUSH SCH ×2 (19:41→22:09)
[2021-06-02] MEDS: HYDROmorphone 2 MG/ML SDV IVPUSH PRN ×3 (04:05→17:30)
[2021-06-02] MEDS: hydrALAZINE 20 MG/ML SDV IVPUSH SCH ×2 (09:15→17:00)
--- NOTE | 2021-06-14 09:16 | PCM.PN ---
- General Info Date of Service: 06/02/21 Admission Dx/Problem (Free Text): Patient after end-of-life care - Patient Data Vitals - Most Recent: Last Vital Signs Temp 98.4 F 06/01/21 08:00 Pulse 90 06/01/21 08:00 Resp 16 06/01/21 08:00 BP 191/94 H 06/01/21 08:00 Pulse Ox 97 06/01/21 08:00 Weight - Most Recent: 169 lb Med Orders - Current: Current Medications Discontinued Medications Acetaminophen (Acetaminophen 325 Mg Tab) 650 mg PO Q6H PRN PRN Reason: Pain Artificial Tears (Polyvinyl Alcohol 1.4% Ophth Soln 15 Ml Bottle) 0 ml EYEBOTH Q1H PRN PRN Reason: Dry Eyes Aspirin (Aspirin 81 Mg Tab.Chew) 81 mg PO QPM [facility] Last Admin: 05/31/21 20:37 Dose: 81 mg Documented by: Atorvastatin Calcium (Atorvastatin 20 Mg Tab) 20 mg PO QPM [facility] Last Admin: 05/31/21 20:38 Dose: 20 mg Documented by: Fentanyl (Fentanyl 25 Mcg/Hr Transdermal Patch) 25 mcg TRDERM Q72H [facility] Last Admin: 06/01/21 10:30 Dose: 25 mcg Documented by: Hydralazine HCl (Hydralazine 10 Mg Tab) 10 mg PO Q8HR [facility] Last Admin: 05/31/21 21:30 Dose: 10 mg Documented by: Hydralazine HCl (Hydralazine 20 Mg/Ml Sdv) 10 mg IVPUSH Q8H [facility] Last Admin: 06/01/21 08:30 Dose: 10 mg Documented by: Hydralazine HCl (Hydralazine 20 Mg/Ml Sdv) 10 mg IVPUSH Q4H [facility] Last Admin: 06/01/21 14:25 Dose: 10 mg Documented by: Hydralazine HCl (Hydralazine 20 Mg/Ml Sdv) 20 mg IVPUSH Q8H [facility] Last Admin: 06/02/21 17:00 Dose: Not Given Documented by: Hydromorphone HCl (Hydromorphone 2 Mg/Ml Sdv) Confirm Administered Dose 2 mg .ROUTE .STK-MED ONE Stop: 05/31/21 21:42 Last Admin: 05/31/21 21:44 Dose: 0.5 mg Documented by: Hydromorphone HCl (Hydromorphone 2 Mg/Ml Sdv) 0.5 mg IVPUSH NOW STA Stop: 06/01/21 00:40 Last Admin: 06/01/21 04:30 Dose: 0.5 mg Documented by: Hydromorphone HCl (Hydromorphone 2 Mg/Ml Sdv) 0.5 mg IVPUSH Q3H PRN PRN Reason: Pain Last Admin: 06/01/21 10:42 Dose: 0.5 mg Documented by: Hydromorphone HCl (Hydromorphone 2 Mg/Ml Sdv) 1 mg IVPUSH Q3H PRN PRN Reason: Pain Last Admin: 06/02/21 17:30 Dose: 1 mg Documented by: Levothyroxine Sodium (Levothyroxine 75 Mcg Tab) 75 mcg PO ACBREAKFAST [facility] Last Admin: 06/01/21 08:14 Dose: Not Given Documented by: Magnesium Oxide (Magnesium Oxide 400 Mg Tab) 400 mg PO DAILY [facility] Last Admin: 06/01/21 08:15 Dose: Not Given Documented by: Metoprolol Succinate (Metoprolol Succinate 50 Mg Tab.Er) 50 mg PO QPM [facility] Last Admin: 05/31/21 20:37 Dose: 50 mg Documented by: Miscellaneous Information (Remove Patch) 1 ea TRDERM Q72H [facility] Miscellaneous Information (Remove Patch) 1 ea TRDERM Q72H [facility] Morphine Sulfate (Morphine 2 Mg/Ml Syringe) 2 mg IVPUSH Q4H PRN PRN Reason: Pain (moderate 4-6) Last Admin: 05/31/21 20:40 Dose: 2 mg Documented by: (Candesartan [ Atacand] 32 Mg Tablet) 32 mg PO DAILY [facility] Last Admin: 06/01/21 08:15 Dose: Not Given Documented by: Scopolamine (Scopolamine 1.5 Mg Transdermal Patch) 1.5 mg TRDERM Q72H PRN PRN Reason: Other Last Admin: 06/01/21 14:27 Dose: 1.5 mg Documented by: Tuberculin PPD (Tuberculin, Ppd 5 Units/0.1 Ml 1 Ml Mdv) 5 unit IDERM ONETIME ONE Stop: 05/31/21 10:49 Last Admin: 05/31/21 14:46 Dose: 5 unit Documented by: - Exam Urinary Catheter Total Time: 3Days 8Hours Sepsis Event Note - Evaluation Sepsis Screening Result: No Definite Risk - Problem List & Annotations (1) Anorexia SNOMED Code(s): 32822031 Code(s): R63.0 - ANOREXIA Status: Acute Priority: High (2) Cancer, metastatic to bone Status: Acute Priority: High (3) Cancer, metastatic to lung Status: Acute Priority: High Qualifiers: Laterality: bilateral Qualified Code(s): C78.01 - Secondary malignant neoplasm of right lung; C78.02 - Secondary malignant neoplasm of left lung (4) 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 Patient has limited mobility due to pain, making pain management foremost in her care. - Plan Plan:: 86-year-old female who was admitted to the floor for management of her failure to thrive and dehydration related to metastasized cancer multiple sites. She is being moved from the floor to swing, for continued medical management of her pain, and end-of-life care. 1. Liver mets to spine, and soft tissue Given that the patient is terminalpatient does not want any chemo or radiation therapy, but comfort care and pain control measures. 2. Back pain most likely due to mets Patient's pain is being controlled with: Fentanyl patch 25 mcg, saline lock to remain in place for IV morphine 2 mg every 4 hours as needed for breakthrough pain. Patient was placed on 2 L nasal cannula to maintain SPO2 above 92% secondary to respiratory depression from narcotics. 3. Failure to thrive/dehydration/anorexia Continue to offer and encourage oral intake including water, Ensure, solid foods. Manage patient's needs as necessary. Will reevaluate medication regimen once patient is no longer taking oral intake of her current medications. 4. Constipation Patient hasn't stooled since 05/29 most likely due to chronic opioid administration, will give medication to address if necessary. 5. Uncontrolled hypertension Patient to continue her home medications for same, added hydralazine to her regimen.
== END 2021-06-02 17:50 | disposition expired | DRG 948 ==
LOC: LB.MS 05-31 09:21
PROVIDERS: ADMIT Physician Assistant; ATTEND Physician Assistant
DX: G89.3 Neoplasm related pain (acute) (chronic) (principal); C78.01 Secondary malignant neoplasm of right lung; C78.02 Secondary malignant neoplasm of left lung; C79.51 Secondary malignant neoplasm of bone; M48.50XA Collapsed vertebra, not elsewhere classified, site unspecified, initial encounter for fracture; C80.1 Malignant (primary) neoplasm, unspecified; Z51.5 Encounter for palliative care; R63.0 Anorexia; R62.7 Adult failure to thrive; E86.0 Dehydration; K59.03 Drug induced constipation; T40.2X5A Adverse effect of other opioids, initial encounter; I10 Essential (primary) hypertension; M54.9 Dorsalgia, unspecified; Z85.9 Personal history of malignant neoplasm, unspecified; Z79.82 Long term (current) use of aspirin; Z79.890 Hormone replacement therapy; Z68.29 Body mass index [BMI] 29.0-29.9, adult
CPT/HCPCS: 86580; A9270-GY; J0360; J1170; J2270